=== PATIENT | female | born 1955 | race African-American/Black ===

== ENCOUNTER 2017-08-19 07:31 | Inpatient (IN) | payer OTHER ==
[~2017-08-19] VITALS: Ht 160 cm; Wt 63.5 kg
--- NOTE | ~2017-08-19 | EKG ---
[address] [address] ELECTROCARDIOGRAM REPORT Name: BRY MUNROE Room #: [address] [place] [address] [place] ..#: [id number] Admission: 08/19/17 Attend Phys: Atul Nagy MD Discharge: 08/19/17 Date of : 57 Report #: [id number] THIS REPORT FOR: //name// [facility] ED Test Date: 2017-08-19 Test Time: 10:17:58 Pat Name: BRY MUNROE Department: Room: [facility] Gender: F Mica Inspector: Allen JACKSON : 1955 Requested By: Estefany Law Order Number: [id number] MD: Paul Leal Measurements Intervals [place] Rate: 122 P: 41 AK: 156 QRS: 16 QRSD: 99 T: 2 QT: 318 QTc: 453 Interpretive Statements Sinus tachycardia Probable left atrial enlargement Borderline abnrm T, anterolateral leads Compared to ECG 08/19/2017 08:37:17 No significant changes Electronically Signed On 08-19-2017 19:54:25 CDT by Paul Leal [email or web address] <ELECTRONICALLY SIGNED> By: Paul Leal MD 08/19/17 1954 1017 1017 Paul Leal MD /EPI
--- NOTE | ~2017-08-19 | EKG ---
[place] [address] [address] [place] [address] ELECTROCARDIOGRAM REPORT Name: BRY MUNROE Room #: [facility]#: [id number] Admission: 08/19/17 Attend Phys: Discharge: Date of : 57 Report #: [id number] THIS REPORT FOR: //name// [facility] ED Test Date: 2017-08-19 Test Time: 08:37:17 Pat Name: BRY MUNROE Department: Room: Gender: F [employer] Bagger: [facility] : 1955 Requested By: Estefany Law Order Number: [id number] MD: Paul Leal Measurements Intervals [place] Rate: 141 P: 47 AR: 142 QRS: 35 QRSD: 95 T: -88 QT: 273 QTc: 418 Interpretive Statements Sinus tachycardia Probable left atrial enlargement Borderline repolarization abnormality Compared to ECG 05/15/2007 15:12:23 Sinus rhythm no longer present T-wave abnormality no longer present Electronically Signed On 08-19-2017 8:55:06 CDT by Paul Leal [email or web address] <ELECTRONICALLY SIGNED> By: Paul Leal MD 08/19/1755 Paul Leal MD /WENDY
[2017-08-19 07:32] VITALS: BP 150/73
[2017-08-19] MEDS ORDERED: MOBIC7.5 MG PO (07:37)
[2017-08-19] MEDS ORDERED: FLEXERIL PO (07:38)
[2017-08-19] MEDS ORDERED: MS CONTIN15 MG PO (07:38)
[2017-08-19 08:26] LABS: HEMATOCRIT 34.4 % (37.0-47.0); HEMOGLOBIN 10.9 gm/dL (12.0-15.0); MCH 28.2 pg (26.0-34.0); MCHC 31.7 g/dL (28.0-37.0); MCV 88.8 fL (80.0-100.0); PLATELET COUNT 349 thou/uL (150-400); RBC 3.87 mil/uL (4.20-5.00); RDW 14.5 % (10.5-14.5); WBC 20.2 thou/uL (4.0-11.0)
[2017-08-19 08:39] LABS: BE(vivo) -8.6 mmol/L (-2 to +3); HCO3 18.2 mmol/L (22.0-26.0); PCO2 42.1 mmHg (35.0-45.0); PO2 72.4 mmHg (80.0-100.0); pH 7.253 (7.360-7.450); sO2 92.2 % (92.0-98.0)
[2017-08-19 08:43] LABS: CALCIUM 9.4 mg/dL (8.5-10.1); CREATININE 7.4 mg/dL (0.6-1.0); POTASSIUM 4.9 mmol/L (3.5-5.1)
[2017-08-19 09:16] LABS: ALBUMIN 3.4 g/dL (3.4-5.0); DIRECT BILIRUBIN 0.2 mg/dL (<0.1-0.3); TOTAL BILIRUBIN 0.4 mg/dL (<0.1-1.0); TOTAL PROTEIN 7.9 g/dL (6.4-8.2)
[2017-08-19 09:33] LABS: ABSOLUTE NEUTROPHILS 14.7 thou/uL (1.4-8.2); ATYPICAL LYMPHS 1 %
[2017-08-19 09:34] LABS: ANISOCYTOSIS SLIGHT
[2017-08-19 11:54] VITALS: BP 140/63
== END 2017-08-19 12:06 | disposition home or self-care (01) | DRG 917 ==
LOC: ER 07:31 → EROBS 08:52
PROVIDERS: Emergency Medicine
DX: T40.2X1A Poisoning by other opioids, accidental (unintentional), initial encounter (principal); A41.9 Sepsis, unspecified organism; R65.21 Severe sepsis with septic shock; J69.0 Pneumonitis due to inhalation of food and vomit; N17.9 Acute kidney failure, unspecified; I10 Essential (primary) hypertension; Y92.89 Other specified places as the place of occurrence of the external cause; Z79.899 Other long term (current) drug therapy

== ENCOUNTER 2018-02-17 22:58 | Inpatient (IN) | payer OTHER ==
[~2018-02-17] VITALS: Ht 162.6 cm; Wt 76.5 kg
--- NOTE | ~2018-02-17 | EKG ---
[address] [address] ELECTROCARDIOGRAM REPORT Name: SHANEKABRY D Room #: 245-P [facility] IN .R.#: [id number] Admission: 02/18/18 Attend Phys: Mark Cm MD Discharge: Date of : 57 Report #: [id number] THIS REPORT FOR: //name// [facility] Test Date: 2018-02-18 Test Time: 07:09:58 Pat Name: BRY MUNROE Department: Room: [facility] Gender: F Chief Executive: PHIL : 1955 Requested By: Jose Leigh Order Number: [id number] MD: Jv Fonseca Measurements Intervals [place] Rate: 135 P: 58 SD: 134 QRS: 27 QRSD: 71 T: 20 QT: 327 QTc: 491 Interpretive Statements Sinus tachycardia Borderline repolarization abnormality Borderline prolonged QT interval Compared to ECG 08/19/2017 10:17:58 No significant changes Electronically Signed On 02-18-2018 8:41:35 CDT by Jv Fonseca [email or web address] <ELECTRONICALLY SIGNED> By: Jv Fonseca MD, [facility] 02/18/18 0841 8 8 Jv Fonseca MD, [facility] /EPI
--- NOTE | ~2018-02-17 | EKG ---
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 Activities: SOLO : 1955 Requested By: Mark Cm Order Number: [id number] MD: Jv Fonseca Measurements Intervals [place] Rate: 134 P: 41 ND: 123 QRS: 22 QRSD: 102 T: 58 QT: 386 QTc: 577 Interpretive Statements Sinus tachycardia Nonspecific ST and T wave abnormality Prolonged QT interval Compared to ECG 08/19/2017 10:17:58 No significant change was found Electronically Signed On 02-27-2018 7:59:32 CDT by Jv Fonseca [email or web address] <ELECTRONICALLY SIGNED> By: Jv Fonseca MD, FACC 02/27/18 0759 2312 231 Jv Fonseca MD, FACC /EPI
--- NOTE | ~2018-02-17 | HC ---
[facility] [place] [address] CONSULTATION Name: BRY MUNROE Room #: 204-P [facility] IN ..#: [id number] Admission: 02/18/18 Attend Phys: Mark Cm MD Discharge: 02/26/18 Date of : 57 Report #: [id number] THIS REPORT FOR: //name// CC: Enid Cm DATE OF SERVICE: 02/19/2018 HISTORY OF PRESENT ILLNESS: This is a 63-year-old female patient who was evaluated by me for altered mental status. I had talked to the nurses, looking after this patient last night, and have made multiple attempts to reach the patient's , but I have not been able to reach the patient's . I reviewed the records and admission history and physical examination indicate that when they did try to get history from the , he has indicated "do I have to repeat everything, it is in chart." I was able to reach the Emergency Room physician, who admitted the patient and I reviewed those notes. This patient was also here in this hospital in August of this year and at that time, her creatinine was 7.4. Even now her creatinine, when she came in, it was 3.1. It looks like the patient takes multiple medications. They are mostly psychotropic medication. She was admitted with what looks like pretty significant pneumonia on chest x-ray. She is being treated for that. Infectious Disease is seeing her and addressing the ID issues. When she came in, her white count was 18.2 and it is 13.2 now. REVIEW OF SYSTEMS: She had a prior history of stroke. I do not know how that stroke affected her and what the etiology of that stroke was. She does have a history of taking too much medication and the has indicated to Emergency Room physician that she may have taken too much medication this time also. She was functional and in fact was employed. Last time when she came in, she had a creatinine of 7.4, but she was still able to neurologically function. I carried out the 14-point review of systems, the best I could, but I am not able to reach the patient's . She has a history of hypertension, chronic back pain. She has a sinus tachycardia. PAST MEDICAL HISTORY: Positive for stroke, but I cannot get any further history until I can reach the patient's . FAMILY HISTORY: Unavailable. SOCIAL HISTORY: She is , but I am unable to reach the patient's . PHYSICAL EXAMINATION: Limited. NEUROLOGY: She sits up, she does not follow any commands. She will say a couple of irrelevant things. She moves both sides. She does not cooperate with the cranial nerve examination. That is all the workup or the exam I can carry [facility] [address] [place] [address] CONSULTATION Name: BRY MUNROE Room #: 204-P [facility] IN M.R.#: [id number] Admission: 02/18/18 Attend Phys: Mark Cm MD Discharge: 02/26/18 Date of : 57 Report #: [id number] out in this patient because the patient is very uncooperative. IMPRESSION: This patient's symptoms are concerning. First thing, we need to see how much medication she took. That may be part of her encephalopathy, especially with high creatinine when she came in and she being on medication like gabapentin, which is excreted by kidney. Some encephalopathy is expected with such massive pneumonia. However, this patient was functional before and she is completely confused. Because of that, central nervous system infections should be excluded if we can. [place] thing is to do the spinal tap in that regard, but this patient is so agitated that she probably has to be intubated and have a conscious sedation to get the spinal tap done and maybe an MRI done. She got some Lovenox and they started that with the possibility of pulmonary embolism, but that has been discontinued. She is on heparin for deep venous thrombosis prophylaxis. That also need to be discontinued and I need to discuss risk, benefit with about the spinal tap. Lovenox should be close to out of the system now. She also needs an MRI if it can be done. I will continue to make an effort to reach the . In the meantime, I have ordered an EEG on her and see if she allows that. Thank you very much for this referral and we will continue to follow this patient with you and I will try to continue to make an effort to reach the patient's . <ELECTRONICALLY SIGNED> By: Efrain Crane MD 03/01/18 1910 0758 1011 Efrain Crane MD /nt
--- NOTE | ~2018-02-17 | 2DMMODE ---
[facility] [place] [address] 2 D/M-MODE ECHOCARDIOGRAM Name: BRY MUNROE Room #: 245-P [facility] IN M.R.#: [id number] Admission: 02/18/18 Attend Phys: Mark Cm MD Discharge: Date of : 57 Date of Service: 02/18/18 1343 Report #: [id number] THIS REPORT FOR: //name// APPROVED REPORT Study performed: 02/18/2018 13:10:25 EXAM: Comprehensive 2D, Doppler, and color-flow Echocardiogram Patient Location: ICU Room #: [facility] Status: routine BSA: 1.78 HR: 125 bpm BP: 155/94 mmHg Rhythm: Tachycardia Other Information Study Quality: Adequate Technically limited study due to highly uncooperative and combative patient. Unable to finish exam.. Indications Heart failure. 2D Dimensions RVDd: 38.73 mm IVSd: 9.99 (7-11mm) LVOT Diam: 20.46 (18-24mm) LVDd: 40.45 mm PWd: 10.14 (7-11mm) Ascending Ao: 30.86 (22-36mm) LVDs: 23.75 (25-40mm) Aortic Root: 28.42 mm Volumes Left Atrial Volume (Systole) Single Plane 4CH: 36.55 mL Aortic Valve AoV Peak Paul.: 1.91 m/s AO Peak Gr.: 14.66 mmHg LVOT Max P.12 mmHg LVOT Max V: 1.42 m/s DORITA Vmax: 2.44 cm2 Pulmonary Valve PV Peak Paul.: 1.21 m/s PV Peak Gr.: 5.86 mmHg [facility] [address] [place] [address] 2 D/M-MODE ECHOCARDIOGRAM Name: BRY MUNROE Jorge Room #: [address] [place] [address] [place] [facility]#: [id number] Admission: 02/18/18 Attend Phys: Mark Cm MD Discharge: Date of : 57 Date of Service: 02/18/18 1343 Report #: [id number] Tricuspid Valve TR Peak Paul.: 3.14 m/s TR Peak Gr.: 39.45 mmHg Left Ventricle The left ventricle is normal size. Regional wall motion is grossly normal in visualized shrestha. There is normal left ventricular wall thickness. Left ventricular systolic function is normal. LVEF is 65%. This study is not technically sufficient to allow evaluation of the LV diastolic function. Right Ventricle The right ventricle is normal size. The right ventricular systolic function is normal. Atria The left atrium size is normal. The right atrium size is normal. Aortic Valve The aortic valve is grossly normal in structure. No aortic regurgitation is present. There is no aortic valvular stenosis. Mitral Valve The mitral valve is normal in structure. Trace mitral regurgitation. Tricuspid Valve The tricuspid valve is normal in structure. Mild tricuspid regurgitation. Estimated PAP is 40mmHg plus the right atrial pressure. Pulmonic Valve Pulmonic valve is not well visualized. Great Vessels The aortic root is normal in size. The ascending aorta is normal in size. IVC is not visualized. Pericardium There is no pericardial effusion noted. <Conclusion> The left ventricle is normal size. There is normal left ventricular wall thickness. [facility] [address] [place] [address] 2 D/M-MODE ECHOCARDIOGRAM Name: BRY MUNROE Room #: [address] [place] [address] [place] .R.#: [id number] Admission: 02/18/18 Attend Phys: Mark Cm MD Discharge: Date of : 57 Date of Service: 02/18/181342 Report #: [id number] Left ventricular systolic function is normal. The right ventricle is normal size. The left atrium size is normal. The aortic valve is grossly normal in structure. Trace mitral regurgitation. Mild tricuspid regurgitation. Estimated PAP is 40mmHg plus the right atrial pressure. <ELECTRONICALLY SIGNED> By: Jeffery Mantilla MD 02/18/181342 42 42 Jeffery Mantilla MD /INF
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
--- NOTE | ~2018-02-17 | EKG ---
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
--- NOTE | ~2018-02-17 | EEG ---
[facility] [address] [place] [address] ELECTROENCEPHALOGRAM Name: MUNROEBRY GUTIERREZ Jorge Room #: 204-P [facility] IN M.R.#: [id number] Admission: 02/18/18 Attend Phys: Mark Cm MD Discharge: 02/26/18 Date of : 57 Report #: [id number] THIS REPORT FOR: //name// CC: Enid Cm This patient is being evaluated for altered mental status. EEG is being done to further evaluate that. EEG was done by placing the electrode by standard 10-20 system of electrode placement. Both referential and sequential montages were used for recording. Background activity in this patient's EEG is about 7-8 Hz and 30 microvolts. Photic stimulation is unremarkable. The patient's EEG was intermixed with some theta range slowing on both sides. Throughout the record, no active epileptiform activity was noticed. IMPRESSION: This patient's EEG is intermixed with theta range slowing on both sides. That is a nonspecific abnormality, which can occur with encephalopathy, effect of psychotropic medication, dementia, etc. No active epileptiform activity was noticed during this record. <ELECTRONICALLY SIGNED> By: Efrain Crane MD 03/01/18 1911 1509 1518 Efrain Crane MD /nt
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
[~2018-02-17 22:58] MED LIST: FLEXERIL PO; MOBIC7.5 MG PO; MS CONTIN15 MG PO
[2018-02-17 22:59] VITALS: BP 122/67
[2018-02-17] MEDS ORDERED: NEURONTIN 300300 M1 (23:11)
[2018-02-17 23:32] LABS: URINE BILIRUBIN NEGATIVE (Negative); URINE BLOOD 3+ (Negative); URINE CLARITY CLEAR; URINE COLOR YELLOW; URINE GLUCOSE-RANDOM* NEGATIVE (Negative); URINE KETONES NEGATIVE (Negative); URINE LEUKOCYTES-REFLEX NEGATIVE (Negative); URINE NITRITE-REFLEX NEGATIVE (Negative); URINE PROTEIN (DIPSTICK) 1+ (Negative); URINE SPECIFIC GRAVITY >= 1.030 (1.005-1.035); URINE UROBILINOGEN 0.2 E.U./dl (0.2-1.0)
[2018-02-17 23:40] LABS: ABSOLUTE NEUTROPHILS 15.3 thou/uL (1.4-8.2); BASOPHILS 0.3 % (0.0-2.0); HEMATOCRIT 34.7 % (37.0-47.0); HEMOGLOBIN 11.3 gm/dL (12.0-15.0); LYMPHOCYTES 10.3 % (24.0-44.0); MCH 28.7 pg (26.0-34.0); MCHC 32.5 g/dL (28.0-37.0); MCV 88.5 fL (80.0-100.0); MONOCYTES 5.4 % (1.0-8.0); PLATELET COUNT 312 thou/uL (150-400); RBC 3.92 mil/uL (4.20-5.00); RDW 14.8 % (10.5-14.5); WBC 18.2 thou/uL (4.0-11.0)
[2018-02-17 23:43] LABS: AMORPHOUS URATES Moderate /LPF (None Seen); BACTERIA-REFLEX None Seen /HPF (None Seen); COARSE GRANULAR CASTS 0-3 Few /LPF (None Seen); FINE GRANULAR CASTS 0-3 Few /LPF (None Seen); SQUAMOUS 4-10 Moderate /LPF (0-3); URINE RBC 0-2 Rare /HPF (0-2); URINE WBC-REFLEX 0-5 Rare /HPF (0-5)
[2018-02-17 23:46] LABS: CALCIUM 9.1 mg/dL (8.5-10.1); CREATININE 3.1 mg/dL (0.6-1.0); POTASSIUM 4.6 mmol/L (3.5-5.1)
[2018-02-17 23:48] LABS: BE(vivo) -9.1 mmol/L (-2 to +3); HCO3 17.2 mmol/L (22.0-26.0); PCO2 38.8 mmHg (35.0-45.0); PO2 65.2 mmHg (80.0-100.0); pH 7.265 (7.360-7.450); sO2 90.1 % (92.0-98.0)
[2018-02-18] VITALS (60 sets, daily range): BP systolic 82–196; BP diastolic 46–153
[2018-02-18 00:10] LABS: AMP/METHAMP Negative (Negative); BARBITURATES Negative (Negative); BENZODIAZEPINES Negative (Negative); COCAINE Negative (Negative); METHADONE Negative (Negative); OPIATES POSITIVE (Negative); PCP Negative (Negative)
[2018-02-18 02:09] LABS: ALBUMIN 3.6 g/dL (3.4-5.0); DIRECT BILIRUBIN 0.1 mg/dL (<0.1-0.3); TOTAL BILIRUBIN 0.5 mg/dL (<0.1-1.0); TOTAL PROTEIN 8.1 g/dL (6.4-8.2)
[2018-02-18 03:49] LABS: PCO2 33.9 mmHg (35.0-45.0); PO2 104.9 mmHg (80.0-100.0); sO2 97.1 % (92.0-98.0)
[2018-02-18 03:50] LABS: pH 7.263 (7.360-7.450)
[2018-02-18 04:38] LABS: CALCIUM 8.5 mg/dL (8.5-10.1); POTASSIUM 4.3 mmol/L (3.5-5.1)
[2018-02-18 04:42] LABS: CREATININE 2.1 mg/dL (0.6-1.0)
[2018-02-18 04:45] LABS: APTT 27.9 Seconds (24.5-32.8); FIBRINOGEN 490.4 mg/dL (210-360); INR 1.1; PROTIME 11.1 Seconds (9.3-11.4)
[2018-02-18 05:11] LABS: TSH 0.267 uIU/mL (0.358-3.740)
[2018-02-18 05:44] LABS: FOLIC ACID 30.8 ng/mL (8.6-58.9)
[2018-02-18 14:27] LABS: CALCIUM 9.3 mg/dL (8.5-10.1); CREATININE 1.4 mg/dL (0.6-1.0); POTASSIUM 3.8 mmol/L (3.5-5.1)
[2018-02-19] VITALS (45 sets, daily range): BP systolic 110–182; BP diastolic 54–118
[2018-02-19 05:35] LABS: ABSOLUTE NEUTROPHILS 10.8 thou/uL (1.4-8.2); BASOPHILS 0.2 % (0.0-2.0); EOSINOPHILS 0.7 % (0.0-3.0); HEMATOCRIT 26.6 % (37.0-47.0); MONOCYTES 5.1 % (1.0-8.0); PLATELET COUNT 215 thou/uL (150-400); RBC 3.02 mil/uL (4.20-5.00); RDW 14.8 % (10.5-14.5); WBC 13.2 thou/uL (4.0-11.0)
[2018-02-19 05:36] LABS: HEMOGLOBIN 8.8 gm/dL (12.0-15.0)
[2018-02-19 05:42] LABS: CALCIUM 9.1 mg/dL (8.5-10.1); CREATININE 0.9 mg/dL (0.6-1.0); POTASSIUM 3.3 mmol/L (3.5-5.1)
[2018-02-20] VITALS (39 sets, daily range): BP systolic 119–194; BP diastolic 82–130
[2018-02-20 03:33] LABS: CALCIUM 8.9 mg/dL (8.5-10.1); CREATININE 0.8 mg/dL (0.6-1.0); POTASSIUM 3.6 mmol/L (3.5-5.1)
[2018-02-20 05:23] LABS: ABSOLUTE NEUTROPHILS 12.3 thou/uL (1.4-8.2); BASOPHILS 0.5 % (0.0-2.0); EOSINOPHILS 0.4 % (0.0-3.0); HEMATOCRIT 30.9 % (37.0-47.0); HEMOGLOBIN 9.9 gm/dL (12.0-15.0); LYMPHOCYTES 19.7 % (24.0-44.0); MCH 27.7 pg (26.0-34.0); MCHC 31.9 g/dL (28.0-37.0); MCV 86.7 fL (80.0-100.0); MONOCYTES 7.6 % (1.0-8.0); PLATELET COUNT 264 thou/uL (150-400); POLYS 71.8 % (36.0-66.0); RBC 3.56 mil/uL (4.20-5.00); RDW 14.6 % (10.5-14.5); WBC 17.2 thou/uL (4.0-11.0)
[2018-02-21] VITALS (42 sets, daily range): BP systolic 100–194; BP diastolic 61–127
[2018-02-21 03:32] LABS: CALCIUM 8.6 mg/dL (8.5-10.1); CREATININE 0.7 mg/dL (0.6-1.0)
[2018-02-21 03:35] LABS: POTASSIUM 2.9 mmol/L (3.5-5.1)
[2018-02-21] MEDS ORDERED: MS CONTIN 30 MG30 MG PO (18:39)
[2018-02-22] VITALS (24 sets, daily range): BP systolic 109–159; BP diastolic 61–99
[2018-02-22 04:21] LABS: CALCIUM 8.5 mg/dL (8.5-10.1); CREATININE 0.7 mg/dL (0.6-1.0); POTASSIUM 3.2 mmol/L (3.5-5.1)
[2018-02-23] VITALS (29 sets, daily range): BP systolic 133–186; BP diastolic 70–135
[2018-02-23 04:11] LABS: MAGNESIUM 1.7 mg/dL (1.8-2.4); POTASSIUM 3.4 mmol/L (3.5-5.1)
[2018-02-23 22:15] LABS: MAGNESIUM 1.6 mg/dL (1.8-2.4); POTASSIUM 3.3 mmol/L (3.5-5.1)
[2018-02-24] VITALS (14 sets, daily range): BP systolic 139–185; BP diastolic 75–132
[2018-02-24 05:13] LABS: ABSOLUTE NEUTROPHILS 4.7 thou/uL (1.4-8.2); BASOPHILS 0.5 % (0.0-2.0); EOSINOPHILS 2.7 % (0.0-3.0); HEMOGLOBIN 10.3 gm/dL (12.0-15.0); LYMPHOCYTES 39.6 % (24.0-44.0); MCH 28.8 pg (26.0-34.0); MCHC 33.2 g/dL (28.0-37.0); MCV 86.9 fL (80.0-100.0); MONOCYTES 10.8 % (1.0-8.0); PLATELET COUNT 285 thou/uL (150-400); POLYS 46.4 % (36.0-66.0); RBC 3.57 mil/uL (4.20-5.00); RDW 14.2 % (10.5-14.5); WBC 10.1 thou/uL (4.0-11.0)
[2018-02-24 05:24] LABS: CREATININE 0.7 mg/dL (0.6-1.0); POTASSIUM 3.7 mmol/L (3.5-5.1)
[2018-02-25] VITALS (7 sets, daily range): BP systolic 134–176; BP diastolic 55–118
[2018-02-26] VITALS (7 sets, daily range): BP systolic 135–184; BP diastolic 90–130
[2018-02-26] MEDS ORDERED: MORPHINE SULFAT15 M3 PO (12:58)
[2018-02-26] MEDS ORDERED: COLACE100 MG PO (13:00)
[2018-02-26] MEDS ORDERED: LIDOPATCH1 EACH TRANSDERM (13:00)
[2018-02-26] MEDS ORDERED: MIRALAX17 GM PO (13:00)
[2018-02-26] MEDS ORDERED: FELODIPINE 5 MG5 M1 PO ×2 (13:00→16:15)
[2018-02-26] MEDS ORDERED: NEURONTIN600 MG PO (13:00)
[2018-02-26] MEDS ORDERED: PEPCID20 MG PO (13:00)
== END 2018-02-26 18:45 | disposition home or self-care (01) | DRG 871 ==
LOC: ER 22:58 → EROBS 02-18 01:12 → ICU 02-18 01:12 → 2N 02-24 14:01 → ENTRNSPT 02-26 18:41 → 2N 02-26 18:45
PROVIDERS: Emergency Medicine; Hospitalist; Internal Medicine Pulmonary Disease; Nurse Practitioner Acute Care; Nurse Practitioner Family; Specialist
PROC: 02HV33Z Insertion of Infusion Device into Superior Vena Cava, Percutaneous Approach (ICD-10-PCS; principal; 2018-02-18)
DX: A41.9 Sepsis, unspecified organism (principal); J96.01 Acute respiratory failure with hypoxia; G92 Toxic encephalopathy; J69.0 Pneumonitis due to inhalation of food and vomit; E87.2 Acidosis; E87.3 Alkalosis; N17.9 Acute kidney failure, unspecified; F11.23 Opioid dependence with withdrawal; R65.20 Severe sepsis without septic shock; G89.29 Other chronic pain; M54.9 Dorsalgia, unspecified; N18.9 Chronic kidney disease, unspecified; R41.0 Disorientation, unspecified; R45.1 Restlessness and agitation; I12.9 Hypertensive chronic kidney disease with stage 1 through stage 4 chronic kidney disease, or unspecified chronic kidney disease; Z79.899 Other long term (current) drug therapy; Z86.73 Personal history of transient ischemic attack (TIA), and cerebral infarction without residual deficits
CPT/HCPCS: 10078; 10081; 27000

== ENCOUNTER → 2018-10-03 | Outpatient (CLI) | payer OTHER ==
[~2018-10-03] MED LIST changes: +COLACE100 MG PO; +FELODIPINE 5 MG5 M1 PO; +LIDOPATCH1 EACH TRANSDERM; +MIRALAX17 GM PO; +MORPHINE SULFAT15 M3 PO; +MS CONTIN 30 MG30 MG PO; +NEURONTIN 300300 M1; +NEURONTIN600 MG PO; +PEPCID20 MG PO
== END ==
LOC: NUC 09-16 10:49
DX: M54.6 Pain in thoracic spine (principal)

== ENCOUNTER 2019-01-07 10:50 | Emergency (ER) | payer OTHER ==
[~2019-01-07] VITALS: Ht 160 cm; Wt 74.8 kg
[2019-01-07 11:30] LABS: ABSOLUTE NEUTROPHILS 3.1 thou/uL (1.4-8.2); BASOPHILS 1.6 % (0.0-2.0); EOSINOPHILS 2.2 % (0.0-3.0); HEMATOCRIT 39.1 % (37.0-47.0); LYMPHOCYTES 34.7 % (24.0-44.0); MCH 29.2 pg (26.0-34.0); MCHC 33.2 g/dL (28.0-37.0); MONOCYTES 5.9 % (1.0-8.0); PLATELET COUNT 303 thou/uL (150-400); POLYS 55.6 % (36.0-66.0); RBC 4.45 mil/uL (4.20-5.00); RDW 13.9 % (10.5-14.5); WBC 5.6 thou/uL (4.0-11.0)
[2019-01-07 11:43] LABS: ANION GAP 14 mmol/L (7-16); BUN 16 mg/dL (7-18); CALCIUM 10.3 mg/dL (8.5-10.1); CHLORIDE 105 mmol/L (98-107); CO2 20 mmol/L (21-32); CREATININE 0.9 mg/dL (0.6-1.0); GLUCOSE 95 mg/dL (74-106); POTASSIUM 4.3 mmol/L (3.5-5.1); SODIUM 139 mmol/L (136-145)
[2019-01-07 11:48] LABS: ALBUMIN 4.3 g/dL (3.4-5.0); SGOT 17 U/L (15-37); SGPT 22 U/L (30-65); TOTAL BILIRUBIN 0.4 mg/dL (<0.1-1.0); TOTAL PROTEIN 8.4 g/dL (6.4-8.2); TROPONIN-I <0.06 ng/mL (<0.06)
[2019-01-07 12:40] LABS: URINE BILIRUBIN NEGATIVE (Negative); URINE BLOOD NEGATIVE (Negative); URINE CLARITY CLEAR; URINE COLOR YELLOW; URINE GLUCOSE-RANDOM* NEGATIVE (Negative); URINE KETONES NEGATIVE (Negative); URINE LEUKOCYTES-REFLEX TRACE (Negative); URINE NITRITE-REFLEX NEGATIVE (Negative); URINE PROTEIN (DIPSTICK) NEGATIVE (Negative); URINE UROBILINOGEN 0.2 E.U./dl (0.2-1.0)
[2019-01-07 14:07] VITALS: BP 132/80
--- NOTE | 2019-01-07 16:02 | EKG ---
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
== END 2019-01-07 14:05 | disposition home or self-care (01) ==
LOC: ER 10:50
PROVIDERS: Physician Assistant
DX: M54.5 Low back pain (principal); I10 Essential (primary) hypertension; Z86.73 Personal history of transient ischemic attack (TIA), and cerebral infarction without residual deficits

== ENCOUNTER 2020-07-08 21:02 | Inpatient (IN) | payer OTHER ==
[~2020-07-08] VITALS: Ht 160 cm; Wt 83.6 kg
[2020-07-08 21:04] VITALS: BP 107/76
[2020-07-08 21:31] LABS: HEMATOCRIT 39.5 % (37.0-47.0); HEMOGLOBIN 12.5 gm/dL (12.0-15.0); MCH 28.7 pg (26.0-34.0); MCHC 31.8 g/dL (28.0-37.0); MCV 90.3 fL (80.0-100.0); RBC 4.37 mil/uL (4.20-5.00); RDW 14.4 % (10.5-14.5); WBC 15.5 thou/uL (4.0-11.0)
[2020-07-08 22:10] LABS: CALCIUM 9.6 mg/dL (8.5-10.1); CREATININE 5.4 mg/dL (0.6-1.0); POTASSIUM 4.2 mmol/L (3.5-5.1)
[2020-07-08 22:15] LABS: ALBUMIN 4.8 g/dL (3.4-5.0); TOTAL BILIRUBIN 0.2 mg/dL (0.2-1.0); TOTAL PROTEIN 8.9 g/dL (6.4-8.2)
[2020-07-08 22:24] LABS: URINE BILIRUBIN NEGATIVE (Negative); URINE BLOOD NEGATIVE (Negative); URINE CLARITY CLEAR; URINE COLOR YELLOW; URINE GLUCOSE-RANDOM* NEGATIVE (Negative); URINE KETONES NEGATIVE (Negative); URINE LEUKOCYTES-REFLEX NEGATIVE (Negative); URINE NITRITE-REFLEX NEGATIVE (Negative); URINE PROTEIN (DIPSTICK) TRACE (Negative); URINE UROBILINOGEN 0.2 E.U./dl (0.2-1.0)
[2020-07-08] MEDS ORDERED: TIZANIDINE HCL4 M2 PO (22:28)
[2020-07-08] MEDS ORDERED: MELOXICAM7.5 MG PO (22:28)
[2020-07-09] VITALS (12 sets, daily range): BP systolic 107–199; BP diastolic 66–149
[2020-07-09] MEDS ORDERED: MORPHINE SULFAT15 M3 PO (02:36)
[2020-07-09] MEDS ORDERED: MS CONTIN 30 MG30 M1 PO (02:36)
[2020-07-09 03:28] LABS: HEMATOCRIT 36.2 % (37.0-47.0); HEMOGLOBIN 11.4 gm/dL (12.0-15.0); MCH 28.7 pg (26.0-34.0); MCHC 31.4 g/dL (28.0-37.0); MCV 91.4 fL (80.0-100.0); RBC 3.95 mil/uL (4.20-5.00); RDW 14.6 % (10.5-14.5); WBC 13.8 thou/uL (4.0-11.0)
[2020-07-09 03:33] LABS: CALCIUM 8.2 mg/dL (8.5-10.1); POTASSIUM 4.2 mmol/L (3.5-5.1); TOTAL BILIRUBIN 0.2 mg/dL (0.2-1.0); TOTAL PROTEIN 7.6 g/dL (6.4-8.2)
[2020-07-09 03:59] LABS: CREATININE 4.2 mg/dL (0.6-1.0)
--- NOTE | 2020-07-09 04:55 | NUR ---
Called Carmelita at this time to update her on patient's status after additional narcan bolus. Carmelita gives order for stat ABG
[2020-07-09 05:19] LABS: HCO3 20.5 mmol/L (22.0-26.0); PCO2 54.9 mmHg (35.0-45.0); PO2 87.8 mmHg (80.0-100.0); sO2 94.4 % (92.0-98.0)
[2020-07-09 05:20] LABS: pH 7.189 (7.360-7.450)
--- NOTE | 2020-07-09 05:38 | NUR ---
Bipap settings currently: 18/10-- 14--45%
--- NOTE | 2020-07-09 06:11 | NUR ---
Report attempted to ICU nurse. Reports she will call back.
--- NOTE | 2020-07-09 06:37 | NUR ---
RT at bedside getting blood gas
[2020-07-09 06:40] LABS: BE(vivo) -7.4 mmol/L (-2 to +3); HCO3 20.7 mmol/L (22.0-26.0); PCO2 52.9 mmHg (35.0-45.0); PO2 185.4 mmHg (80.0-100.0)
--- NOTE | 2020-07-09 07:12 | EKG ---
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: : 1955 Requested By: Ester Muniz Order Number: [id number] MD: Malachi Bingham Measurements Intervals [place] Rate: 115 P: 27 [place]: 137 QRS: 8 QRSD: 93 T: 4 QT: 317 QTc: 439 Interpretive Statements Sinus tachycardia Left atrial enlargement Left ventricular hypertrophy Compared to ECG 01/07/2019 11:17:11 Left ventricular hypertrophy now present Sinus rhythm no longer present Electronically Signed On 07-09-2020 7:12:48 AUTOMATION TESTER by Malachi Bingham [email or web address] <ELECTRONICALLY SIGNED> By: Malachi Bingham MD, [facility] 07/09/20711 2116 15 Malachi Bingham MD, FACC /EPI
--- NOTE | 2020-07-09 09:40 | NUR ---
chart review. unable to speak with rachel rt require bipap. 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 she was just her 07/07/20 and dc from ed, then spouse brought her back in today. cm called and spouse with spouse donavan" have 1 step to house. no steps inside. she independent, works about 30hr. no dme equip, manage own medications, hh about 3-4 years ago for her back. drives vehicle up till recently she not been able to"/spouse patrick. education that physical therapy will eval when able, might want to help her with medication and manage them for her. " well she has chronic pain and forgets when pain is bad if taken her medication. thank you"/patrick. will cont following as needed for dc needs.
[2020-07-09 12:12] LABS: AMP/METHAMP Negative (Negative); BARBITURATES Negative (Negative); BENZODIAZEPINES Negative (Negative); COCAINE Negative (Negative); METHADONE Negative (Negative); OPIATES POSITIVE (Negative); PCP Negative (Negative)
[2020-07-09 16:29] LABS: BE(vivo) -9.3 mmol/L (-2 to +3); HCO3 16.2 mmol/L (22.0-26.0); PCO2 33.7 mmHg (35.0-45.0); PO2 91.6 mmHg (80.0-100.0); sO2 96.3 % (92.0-98.0)
[2020-07-09 16:32] LABS: pH 7.299 (7.360-7.450)
--- NOTE | 2020-07-09 17:46 | NUR ---
PT TRANSFERRED FROM ER TO ICU THIS AM 0645. PT VERY DROWSY, LETHARGIC, SOMULENT AT THAT TIME. ON BIPAP WITH SHALLOW BREATHING. AT 0900 PT AWAKE AND CONVERSING WITH RN. ANSWERING QUESTIONS APPROPRIATELY. PT STATES THAT SHE TOOK TOO MANY MEDS TO TRY AND CONTROL HER BACK AND LE PAIN. REPORTS TAKING ABOUT 20PILLS OF AN IBUPROFEN/TYLENOL OR ALEEVE/TYLENOL MIX DUAL ACTION PILL, UNKNOWN DOSAGE. SHE ALSO STATES SHE TOOK AT LEAST ONE EXTRA DOES OF MS CONTIN YESTERDAY AFTERNOON. DR CERDAHA HERE AND INFORMED AND TYLENOL LEVEL ORDERED. STATES SHE WAS HAVING DIFFICULTY WALKING STANDING AND WALKING. PAIN IN LE HAS INCREASED IN LAST WEEK. BIPAP OFF SINCE 1100 AND PT TOLERATING WELL. 1200 SPOKE WITH PT'S AND UPDATED HIM. 1645 REPEAT ABG'S DRAWN AND CALLED TO DR CHEN. STATUS UPDATE GIVEN. TO USE BIPAP ONLY PRN APNEA/DECREASED O2 SATS.
[2020-07-10] VITALS (16 sets, daily range): BP systolic 147–198; BP diastolic 79–114
[2020-07-10 03:56] LABS: ALBUMIN 3.2 g/dL (3.4-5.0); ANION GAP 7 mmol/L (7-16); BUN 22 mg/dL (7-18); CALCIUM 8.6 mg/dL (8.5-10.1); CHLORIDE 108 mmol/L (98-107); CO2 25 mmol/L (21-32); CREATININE 1.1 mg/dL (0.6-1.0); DIRECT BILIRUBIN < 0.1 mg/dL (<0.1-0.2); GLUCOSE 119 mg/dL (74-106); PHOSPHORUS 2.7 mg/dL (2.5-4.9); SGOT 218 U/L (15-37); SGPT 129 U/L (30-65); SODIUM 140 mmol/L (136-145); TOTAL BILIRUBIN 0.2 mg/dL (0.2-1.0); TOTAL PROTEIN 6.5 g/dL (6.4-8.2)
[2020-07-11] VITALS (7 sets, daily range): BP systolic 146–167; BP diastolic 88–119
--- NOTE | 2020-07-11 02:24 | NUR ---
ALERT AND ORIENTED X4. SLEEPING IN CHAIR DUE TO CHRONIC BACK PAIN, KPAD TO BACK NEEDED PER PATIENT. STATES CANT SLEEP IN BED. WORKING ON GOALS AND PLAN OF CARE FOR NOC. PROGRESSING TOWARDS DISCHARGE GOALS SLOWLY. CONTINUE TO ASSES CLOSELY.
--- NOTE | 2020-07-11 09:27 | NUR ---
ASSUMED CARE OF PT AT 0700, PT UP IN CHAIR
[2020-07-11 10:44] LABS: HEMOGLOBIN 11.4 gm/dL (12.0-15.0); MCH 28.8 pg (26.0-34.0); MCHC 32.5 g/dL (28.0-37.0); MCV 88.8 fL (80.0-100.0); RBC 3.94 mil/uL (4.20-5.00); RDW 14.2 % (10.5-14.5); WBC 5.7 thou/uL (4.0-11.0)
[2020-07-11 10:52] LABS: CALCIUM 9.1 mg/dL (8.5-10.1); CREATININE 0.8 mg/dL (0.6-1.0); MAGNESIUM 1.8 mg/dL (1.8-2.4); POTASSIUM 3.5 mmol/L (3.5-5.1)
[2020-07-12] VITALS (9 sets, daily range): BP systolic 146–178; BP diastolic 78–110
--- NOTE | 2020-07-12 03:07 | NUR ---
SLEPT MOST OF SHIFT. PAIN MEDICATION GIVEN NEEDED. USING HEATING PAD NEEDED. UP WITH STANDBY ASSIST NEEDED. WORKING ON GOALS AND PLAN OF CARE FOR NOC. PROGRESSING TOWARDS DISCHARGE GOALS SLOWLY. DENIES COMPLAINTS OF CHEST PAIN OR SHORTNESS OF AIR. CONTINUE TO ASSES CLOSELY.
[2020-07-12] MEDS ORDERED: MIRALAX17 GM PO (12:13)
[2020-07-12] MEDS ORDERED: LOPRESSOR100 M1 PO (12:13)
[2020-07-12] MEDS ORDERED: ACETAMINOPHEN325 M1 PO (12:13)
[2020-07-12] MEDS ORDERED: LIDOPATCH1 EACH TRANSDERM (12:13)
[2020-07-12] MEDS ORDERED: COLACE 100 MG100 MG PO (12:13)
--- NOTE | 2020-07-12 12:46 | NUR ---
RECEIVED PT'S CARE AROUND 0735; PT. ON CHAIR; RESTING WITH EYES CLOSED; EQUAL CHEST RISING NOTICED; SR ON THE MONITOR; DURING AM ASSESSMENT PT. AOX4; C/O PAIN OVER BACK; 02/13; PRN PAIN MEDICATION NOT DUE; REFUSED LIDOCAINE PATCH; AM MEDICATIONS GIVEN; REQUESTED TO TURN OFF CHAIR ALARM DUE TO MOVEMENT WITHIN THE CHAIR; EDUCATED ABOUT CALLING BEFORE GETTING UP FROM BED; ST. UNDERSTANDING; EDUCATED ABOUT D/C PROCESS; ST. UNDERSTANDING; SBP ON THE 170s AT NOON; PHYSICIAN ROUNDING NOTIFIED; NO NEW ORDERS; PRN MEDICATION GIVEN; MONITORING; PT. REQUESTED TRANSPORTATION; TITLE I COORDINATOR NOTIFIED; ASSESSMENT CHARGED; FOLLOWING POC; WILL WORK ON THE D/C PAPERS;
--- NOTE | 2020-07-12 13:37 | NUR ---
Patient to ca home with HH care. OT worked with patient. patient does not want skilled care she wants to return home. She is agreeable to home health. She has no prferference of HH agency. She reports any home health that is in network with insurance. Verified home address, PCP Dr Rylan Flores. Patient needs cab ride home. She reports her purse and phone in her home as she came emergently. Patient reports she has a walker she can use for home. ca shoe lay out planner to arrange HH care.
--- NOTE | 2020-07-12 16:27 | NUR ---
FAXED REFERRAL TO [facility] HH SPOKE WITH ANURAG IN INTAKE THEY CAN ACCEPT. FAXED DC ORDERS/SUMMARY RECEIVED CONFIRMATION AND ANURAG WILL ARRANGE VISITS WITH PT.
== END 2020-07-12 16:04 | disposition home health service (06) | DRG 917 ==
LOC: ER 21:02 → ICU 07-09 01:02 → 2N 07-09 01:02 → EROBS 07-09 01:02 → ICU 07-09 06:45 → 2N 07-10 16:53
PROVIDERS: Hospitalist; Internal Medicine Pulmonary Disease; Nurse Practitioner Family; ADMIT Internal Medicine; ATTEND Internal Medicine
PROC: 5A09357 Assistance with Respiratory Ventilation, Less than 24 Consecutive Hours, Continuous Positive Airway Pressure (ICD-10-PCS; principal; 2020-07-09)
DX: T40.2X1A Poisoning by other opioids, accidental (unintentional), initial encounter (principal); J96.01 Acute respiratory failure with hypoxia; G92 Toxic encephalopathy; N17.0 Acute kidney failure with tubular necrosis; J69.0 Pneumonitis due to inhalation of food and vomit; J96.02 Acute respiratory failure with hypercapnia; R65.10 Systemic inflammatory response syndrome (SIRS) of non-infectious origin without acute organ dysfunction; I69.351 Hemiplegia and hemiparesis following cerebral infarction affecting right dominant side; M62.82 Rhabdomyolysis; E87.4 Mixed disorder of acid-base balance; I10 Essential (primary) hypertension; G89.4 Chronic pain syndrome; K59.00 Constipation, unspecified; T39.395A Adverse effect of other nonsteroidal anti-inflammatory drugs [NSAID], initial encounter; Z20.822 Contact with and (suspected) exposure to COVID-19; Y92.89 Other specified places as the place of occurrence of the external cause; Z79.899 Other long term (current) drug therapy; Z79.891 Long term (current) use of opiate analgesic
CPT/HCPCS: 10081; 10203

== ENCOUNTER 2020-12-17 07:39 | Inpatient (IN) | payer OTHER ==
[~2020-12-17] VITALS: Ht 160 cm; Wt 71.0 kg
--- NOTE | ~2020-12-17 | EMS ---
[address] [address] EMS Patient Care Report Name: BRY MUNROE Room #: 361-P ADM IN ..#: [id number] Admission: 12/17/20 Attend Phys: Alphonse Joshi MD Discharge: Date of : 57 Report #: [id number] THIS REPORT FOR: //name// Report Transmitted: 12/18/2020 13:34 EMS Care Summary [place], [place]/[facility] Incident [id number] @ 12/17/2020 07:16 Incident Location [address] [place] [address] Patient BRY LAFLEUR Female, 65 Years 1955 Patient Address [address] [place] [address] Patient History Hypertension (HTN),Back Pain (Chronic), Patient Allergies No known allergies, Patient Medications Gabapentin, Morphine, Chief Complaint Shortness of breath Disposition Transported No Lights/[place] Dispatch Reason Chest Pain (Non-Traumatic) Transported To [facility] Narrative Arrived on scene to find our patient seated on a couch in the living room of her home. Patient stated she had tested positive for Covid-19 4 days prior. Patient stated she had started to become short of breath the night before and it had gone progressively worse until she had called EMS. [place] [address] EMS Patient Care Report Name: BRY MUNROE Room #: [address] [place] [address]#: [id number] Admission: 12/17/20 Attend Phys: Alphonse Joshi MD Discharge: Date of : 57 Report #: [id number] in 7-10 word sentences and had some increased work of breathing. Patient denied having any history of COPD, asthma, or respiratory problems. Patient stated she had central, nonradiating chest pain that she described as an "ache." Patient increased on palpation and inspiration. Patient's lung sounds equal and clear bilaterally. Patient's SPO2 was in the low 80% range on room air. O2 given via nasal cannula raising the patient SPO2 to 91%. Patient was transported and transferred to receiving facility without change in patient condition. Initial Vitals @07:22P: 112,SpO2: 81, @07:27P: 105,BP: 168/139,CO: 7,SpO2: 89, @07:25P: 109,BP: 169/118,CO: 8,SpO2: 90, @07:28P: 104,R: 20,BP: 166/85,Pain: 4/10,GCS: 15,CO: 8,SpO2: 91,Revised Trauma: 12, @07:22P: 111,R: 20,BP: 163/97,Pain: 4/10,GCS: 15,SpO2: 85,Revised Trauma: 12, Assessments @07:19MENTAL:Person Oriented,Place Oriented,Event Oriented,Time Oriented,SKIN:HEENT:Head/Face: No Abnormalities,Neck/Airway: No Abnormalities,LUNG SOUNDS:General: No Abnormalities,Left Upper: No Abnormalities,Right Upper: No Abnormalities,Left Lower: No Abnormalities,Right Lower: No Abnormalities,ABDOMEN:General: No Abnormalities,Left Upper: No Abnormalities,Right Upper: No Abnormalities,Left Lower: No Abnormalities,Right Lower: No Abnormalities,PELVIS//GI:No Abnormalities,EXTREMITIES:Left Arm: No Abnormalities,Right Arm: No Abnormalities,Left Leg: No Abnormalities,Right Leg: No Abnormalities,PULSE:NEURO:No Abnormalities, Impression COVID-19 - Confirmed by testing Procedures @07:19ALS AssessmentResponse: UnchangedSucceeded@07:23Oxygen FlowRate: 4 Device: Nasal Cannula (NC) Response: ImprovedSucceeded Timeline 07:12,Call Received 07:12,Dispatch Notified 07:16,Dispatched 07:16,En Route 07:18,On Scene 07:19,At Patient 07:19,ALS Assessment,Response: UnchangedSucceeded, 07:22,BP: / M,PULSE: 112,RR: R,SPO2: 81 Ox,ETCO2: ,BG: ,PAIN: ,GCS: , 07:22,BP: 163/97 M,PULSE: 111,RR: 20 R,SPO2: 85 Ox,ETCO2: ,BG: ,PAIN: 4,GCS: 15, [address] [address] EMS Patient Care Report Name: BRY MUNROE Jorge Room #: 361-P [facility] IN .R.#: [id number] Admission: 12/17/20 Attend Phys: Alphonse Joshi MD Discharge: Date of : 57 Report #: [id number] 07:23,Oxygen FlowRate: 4 Device: Nasal Cannula (NC) Response: ImprovedSucceeded, 07:24,Depart Scene 07:25,BP: 169/118 M,PULSE: 109,RR: R,SPO2: 90 Ox,ETCO2: ,BG: ,PAIN: ,GCS: , 07:27,BP: 168/139 M,PULSE: 105,RR: R,SPO2: 89 Ox,ETCO2: ,BG: ,PAIN: ,GCS: , 07:28,BP: 166/85 M,PULSE: 104,RR: 20 R,SPO2: 91 Ox,ETCO2: ,BG: ,PAIN: 4,GCS: 15, 07:35,At Destination 07:44,Call Closed Disclaimer v1.1 Copyright 2020 [employer] This EMS Care Summary contains data elements from the applicable legal record (which may be displayed differently). It is designed to provide pertinent information for the following purposes: continuity of care, clinical quality, and state data reporting. The complete legal record is available to ED staff and administrators of the receiving hospital in [employer] Patient Tracker. All data is provided "as is."
[2020-12-17 07:39] VITALS: BP 161/107
[~2020-12-17 07:39] MED LIST changes: +ACETAMINOPHEN325 M1 PO; +COLACE 100 MG100 MG PO; +LOPRESSOR100 M1 PO; +MELOXICAM7.5 MG PO; +MS CONTIN 30 MG30 M1 PO; +TIZANIDINE HCL4 M2 PO
[2020-12-17 07:59] LABS: ABSOLUTE NEUTROPHILS 4.4 thou/uL (1.4-8.2); BASOPHILS 0.4 % (0.0-2.0); EOSINOPHILS 0.2 % (0.0-3.0); HEMATOCRIT 39.9 % (37.0-47.0); HEMOGLOBIN 13.5 gm/dL (12.0-15.0); LYMPHOCYTES 17.2 % (24.0-44.0); MCH 29.7 pg (26.0-34.0); MCHC 33.8 g/dL (28.0-37.0); MONOCYTES 6.8 % (1.0-8.0); PLATELET COUNT 284 thou/uL (150-400); POLYS 75.4 % (36.0-66.0); RBC 4.53 mil/uL (4.20-5.00); RDW 13.2 % (10.5-14.5); WBC 5.8 thou/uL (4.0-11.0)
[2020-12-17 08:08] LABS: ANION GAP 13 mmol/L (7-16); BUN 23 mg/dL (7-18); CALCIUM 9.3 mg/dL (8.5-10.1); CHLORIDE 99 mmol/L (98-107); CO2 25 mmol/L (21-32); CREATININE 1.2 mg/dL (0.6-1.0); GLUCOSE 146 mg/dL (74-106); POTASSIUM 3.1 mmol/L (3.5-5.1); SODIUM 137 mmol/L (136-145)
[2020-12-17 08:18] LABS: ALBUMIN 3.7 g/dL (3.4-5.0); SGOT 106 U/L (15-37); SGPT 101 U/L (14-59); TOTAL BILIRUBIN 0.7 mg/dL (0.2-1.0); TOTAL PROTEIN 8.2 g/dL (6.4-8.2); TROPONIN-I <0.06 ng/mL (<0.06)
[2020-12-17 09:23] LABS: BE(vivo) 1.6 mmol/L (-2 to +3); HCO3 24.5 mmol/L (22.0-26.0); PCO2 33.1 mmHg (35.0-45.0); PO2 74.8 mmHg (80.0-100.0); pH 7.487 (7.360-7.450); sO2 96.1 % (92.0-98.0)
--- NOTE | 2020-12-17 13:54 | EKG ---
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
[2020-12-17 16:32] LABS: CHOLESTEROL 195 mg/dL (<200); HDL CHOLESTEROL 39 mg/dL (>40); LDL CHOLESTEROL 126 mg/dL (<100); TRIGLYCERIDE 151 mg/dL (<150); VLDL 30 mg/dL (<40)
[2020-12-17 17:32] LABS: FOLIC ACID 17.6 ng/mL (8.6-58.9)
--- NOTE | 2020-12-17 18:00 | NUR ---
PT WAS EATING DINNER AND PT REMOVED HIGH FLOW NASAL CANNULA AGAINST NURSES EDUCATION. PATIENT DESATED TO 75% ON ROOM AIR. PT WAS PLACED BACK ON HIGH FLOW AND RE-EDUCATED ON THE IMPORTANCE OF WEARING OXYGEN, PT SATURATIONS INCREASED TO 91% ON NC
[2020-12-18] VITALS (9 sets, daily range): BP systolic 139–193; BP diastolic 75–121
[2020-12-18 06:05] LABS: ABSOLUTE NEUTROPHILS 4.4 thou/uL (1.4-8.2); BASOPHILS 0.5 % (0.0-2.0); HEMATOCRIT 42.1 % (37.0-47.0); HEMOGLOBIN 13.8 gm/dL (12.0-15.0); LYMPHOCYTES 19.3 % (24.0-44.0); MCH 29.9 pg (26.0-34.0); MCHC 32.7 g/dL (28.0-37.0); MCV 91.5 fL (80.0-100.0); MONOCYTES 5.7 % (1.0-8.0); PLATELET COUNT 215 thou/uL (150-400); POLYS 74.5 % (36.0-66.0); RDW 13.3 % (10.5-14.5); WBC 5.9 thou/uL (4.0-11.0)
[2020-12-18 06:20] LABS: ALBUMIN 3.3 g/dL (3.4-5.0); ANION GAP 19 mmol/L (7-16); BUN 29 mg/dL (7-18); CALCIUM 8.7 mg/dL (8.5-10.1); CHLORIDE 100 mmol/L (98-107); CO2 21 mmol/L (21-32); DIRECT BILIRUBIN 0.2 mg/dL (<0.1-0.2); GLUCOSE 118 mg/dL (74-106); PHOSPHORUS 3.5 mg/dL (2.6-4.7); POTASSIUM 3.9 mmol/L (3.5-5.1); SGOT 85 U/L (15-37); SGPT 101 U/L (14-59); SODIUM 140 mmol/L (136-145); TOTAL BILIRUBIN 0.4 mg/dL (0.2-1.0); TOTAL PROTEIN 7.4 g/dL (6.4-8.2)
--- NOTE | 2020-12-18 07:51 | NUR ---
ADMIT ARRIVED AT 0130 FROM ER. ADMISSION COMPLETED. CAREPLAN AND INTERVENTIONS PUT INTO PLACE. 02 SATURATION STAYED IN MID 90'S WHILE ON OPTIFLOW WITH 55L AND 91%. IV ACCESS ESTABLISHED IN ER VERY FICKLE DUE TO CANNULA NOT BEING ADVANCED. ATTEMPTED TO ESTABLISH NEW SITE WITHOUT SUCCESS. IV TEAM CONSULTED. PT VERY WEAK. PT HAS BEEN VOIDING VIA BEDPAN.
--- NOTE | 2020-12-18 11:18 | NUR ---
VAT CONSULTED FOR MIDLINE PLACEMENT. RIGHT UPPER BASILIC ML PLACED, TRIMMED 14CM/0CM EXTERNAL. FLUSHED AND RETURNED BLOOD BRISKLY. RELEASED LINE FOR USE, PER HOSPITAL VASCULAR ACCESS POLICY.
--- NOTE | 2020-12-18 18:00 | HC ---
[facility] [place] [address] CONSULTATION Name: BRY MUNROE Room #: 361-P ADM IN ..#: [id number] Admission: 12/17/20 Attend Phys: Alphonse Joshi MD Discharge: Date of : 57 Report #: [id number] THIS REPORT FOR: cc: Padma Mcdonald MD, Karla L. MD Barry, Joseph W. MD ~ DATE OF SERVICE: 12/18/2020 INFECTIOUS DISEASE CONSULTATION ATTENDING PHYSICIAN: Dr. Joshi. REASON FOR EVALUATION: COVID-19 infection, complicated by pneumonitis and respiratory failure with early ARDS. HISTORY OF PRESENT ILLNESS: Chart reviewed, the patient examined. This is a 65-year-old woman with known history of vasculopathy, previous stroke with right-sided weakness, who presented to the Emergency Room with complaints of progressive dyspnea, had been previously diagnosed with COVID-19 infection; however, it worsened, she had a persistent cough with chest pain consistent with pleurisy, was found to have saturations in the 80s. Evaluation was undertaken. Lactic acid of 1.5. AST was elevated at 106, ALT of 101. Chest x-ray showed bilateral patchy infiltrates. ABGs: pH 7.487, pCO2 of 33.1, pO2 of 74.8 on a nonrebreather. Procalcitonin 0.06. Blood cultures collected at time of admission are sterile thus far. She was empirically started on therapy with azithromycin, ceftriaxone, remdesivir, corticosteroids. ALLERGIES: None known. MEDICATIONS: Ceftriaxone, cholecalciferol, zinc sulfate, thiamine, pantoprazole, metoprolol, gabapentin, methylprednisolone, ascorbic acid, enoxaparin, albuterol, azithromycin. PAST MEDICAL HISTORY: As described above, hypertension, previous stroke, chronic back pain. SOCIAL HISTORY: Nonsmoker, no ethanol, no illicit drug use. FAMILY HISTORY: Noncontributory. REVIEW OF SYSTEMS: As noted above, some mild GI related complaints, anorexia with poor p.o. intake. PHYSICAL EXAMINATION: GENERAL: She appears chronically ill. She is in a position, right lateral decubitus. She appears ill and borderline toxic. [facility] [address] [facility] [place] [address] CONSULTATION Name: BRY MUNROE Room #: 361-P [facility] IN [facility]#: [id number] Admission: 12/17/20 Attend Phys: Alphonse Joshi MD Discharge: Date of : 57 Report #: [id number] VITAL SIGNS: Temperature earlier 100.7, more recently 97.6, pulse 72, respirations 20, blood pressure 190/110. SKIN: Warm. HEENT: Normocephalic. Extraocular muscles intact. Optiflow in place, 55 liters per minute, FiO2 of 90%. NECK: Supple. LUNGS: Somewhat diminished overall, few scattered coarse breath sounds. HEART: Appears to be regular. ABDOMEN: Mildly distended, somewhat firm. No apparent peritoneal signs. GENITOURINARY AND RECTAL: Deferred. LABORATORY DATA: Blood cultures sterile thus far. Most recent electrolytes, sodium 140, potassium 3.9, chloride 100, bicarbonate 21, anion gap of 19, BUN and creatinine 29 and 1.0, glucose of 118, AST of 85, ALT of 101, albumin 33, total protein 7.4. Estimated GFR of 68. CBC: White count of 5.9, H and H 13.8 and 42.1, platelets of 215. TSH of 0.529. Sed rate of 57. CRP of 168.2. ABGs: pH 7.487, pCO2 of 33.1, pO2 of 74.8 and on a nonrebreather. ASSESSMENT AND PLAN: COVID-19 infection, complicated by pneumonitis, respiratory failure, acute respiratory distress syndrome. We will continue empiric therapy and adjust antimicrobial treatment as well as directed therapy toward the coronavirus. In addition to the corticosteroids, remdesivir, we will add Actemra. She remains quite ill and bordering on toxic. May need a higher level of oxygen support. In fact, may deteriorate before she improves. She is certainly at risk for complications. Continue to monitor expectantly. <ELECTRONICALLY SIGNED> By: Mathieu Frances MD 12/18/20 1800 0826 1142 Mathieu Frances MD /nt
--- NOTE | 2020-12-18 19:35 | NUR ---
RN ASSUMED PT'S CARE AT 0700-1900PM, PT IS A&OX4, PT'S SOB HAS IMPROVED, PT'S OPTIFLOW HAS REDUCED TO O2 70%, 45L/MIN/NC,PT IS CONTINUING IV ABX AND TREAT COVID MEDICATIONS.
--- NOTE | 2020-12-18 23:54 | NUR ---
PT SLEEPING IN BED, EASILY AROUSED. OPTI ROMINA AND CONTINUOUS PULSE OX. PT ENCOURAGED TO REST AND LIMIT PHONE CONVERSATIONS. BED ALARM ON. IVF INTACT.
[2020-12-19] VITALS (7 sets, daily range): BP systolic 159–189; BP diastolic 80–103
[2020-12-19 03:40] LABS: ALBUMIN 2.7 g/dL (3.4-5.0); CALCIUM 7.9 mg/dL (8.5-10.1); CREATININE 1.1 mg/dL (0.6-1.0); DIRECT BILIRUBIN 0.1 mg/dL (<0.1-0.2); PHOSPHORUS 3.8 mg/dL (2.5-4.9); POTASSIUM 3.2 mmol/L (3.5-5.1); TOTAL BILIRUBIN 0.3 mg/dL (0.2-1.0); TOTAL PROTEIN 6.8 g/dL (6.4-8.2)
--- NOTE | 2020-12-19 19:02 | NUR ---
RN ASSUMED PT'S CARE AT 0700-1900PM, PT IS A&OX4, PT IS ON OPTIFLOW O2 80-90%, O2 50-55L/MIN/NC, PT'S O2SAT STAYS AT 91-95%, BUT PT HAS SOB WITH ACTIVITIES, PT HAS PRN MEDICATION FOR HTN, PT IS CONTINUING IV ABX AND TREAT COVID MEDICATIONS, AND PAIN MANAGEMENT , RN HAS REPORTED TO NEXT SHIFT TO KEEP EYE ON PT.
[2020-12-20] VITALS (7 sets, daily range): BP systolic 160–191; BP diastolic 89–115
[2020-12-20 03:44] LABS: ALBUMIN 2.7 g/dL (3.4-5.0); ANION GAP 10 mmol/L (7-16); BUN 20 mg/dL (7-18); CALCIUM 8.2 mg/dL (8.5-10.1); CHLORIDE 105 mmol/L (98-107); CO2 27 mmol/L (21-32); DIRECT BILIRUBIN < 0.1 mg/dL (<0.1-0.2); GLUCOSE 117 mg/dL (74-106); PHOSPHORUS 3.2 mg/dL (2.6-4.7); SGOT 39 U/L (15-37); SGPT 54 U/L (14-59); SODIUM 142 mmol/L (136-145); TOTAL BILIRUBIN 0.4 mg/dL (0.2-1.0); TOTAL PROTEIN 6.8 g/dL (6.4-8.2)
[2020-12-20 03:45] LABS: POTASSIUM 3.6 mmol/L (3.5-5.1)
--- NOTE | 2020-12-20 05:56 | NUR ---
PT MAKING SLOW PROGRESS TOWARDS GOALS. ON OPTIFLO 55L-90% OVERNIGHT. PT SUPPLEMENTS WITH NRB MASK AT TIMES OF JOANNE. ABLE TO MOVE TO BSC AND BACK WITH STANDBY ASSIST. LUNGS COARSE IN BOTH LOWER LOBES.
[2020-12-21 03:35] VITALS: BP 171/101
[2020-12-21 05:36] LABS: ALBUMIN 2.5 g/dL (3.4-5.0); CALCIUM 7.8 mg/dL (8.5-10.1); CREATININE 0.8 mg/dL (0.6-1.0); DIRECT BILIRUBIN 0.1 mg/dL (<0.1-0.2); PHOSPHORUS 2.7 mg/dL (2.5-4.9); TOTAL BILIRUBIN 0.4 mg/dL (0.2-1.0); TOTAL PROTEIN 6.4 g/dL (6.4-8.2)
[2020-12-21 05:39] LABS: POTASSIUM 2.7 mmol/L (3.5-5.1)
[2020-12-21 07:36] VITALS: BP 180/107
[2020-12-21 11:36] VITALS: BP 172/93
[2020-12-21 15:08] LABS: HIV ANTIBODY Non Reactive (Non Reactive)
--- NOTE | 2020-12-21 15:14 | NUR ---
INITIAL ASSESSMENT: Received consult. DARRIN reviewed chart and spoke with nursing and attending physician. Pt was admitted due to COVID pneumonia. Pt placed in Enhanced Isolation. Pt has not received a COVID vaccine. Pt is afebrile and requiring optiflow. Pt is on IV abx and IV steroids. Pt is on Remdesivir. DARRIN spoke with pt's spouse, King, via phone. Introduced role of SW. Pt is normally alert/orientated x 4. Pt and spouse live in their home. Pt has a walker to use if needed. Pt has used [facility] in the past. Pt's PCP is Dr. Padma Mcdonald. Pt's spouse was recently hospitalized at [facility] for 10 days due to COVID. He is now at home with home O2. Per King, pt's family have all been hit very hard with COVID. Pt's sister is currently hospitalized at [facility] with COVID. Pt's spouse states their goal is for pt to return home when medically stable. Will need therapy evals ordered when pt is able to participate. DARRIN is following to assist as needed with discharge planning.
[2020-12-21 15:31] VITALS: BP 154/89
[2020-12-21 20:34] VITALS: BP 168/79
[2020-12-22 04:45] VITALS: BP 179/107
[2020-12-22 07:17] VITALS: BP 208/113
[2020-12-22 11:05] VITALS: BP 186/92
--- NOTE | 2020-12-22 14:29 | NUR ---
DARRIN reviewed chart and spoke with nursing and attending physician. Pt remains in Enhanced Isolation due to COVID. Pt is afebrile and requiring optiflow. Pt is on IV abx and IV steroids. Pt's BP elevated. DARRIN notified by ARGENIS RN that pt's [facility] Dual Complete is inactive. Pt has Medicare Part A only. Medicare coverage will need to be verified. Therapy evals to be ordered when pt is able to participate. DARRIN is following to assist as needed with discharge planning.
[2020-12-22 15:42] VITALS: BP 140/117
--- NOTE | 2020-12-22 17:42 | NUR ---
assumed care of pt at 0700. pt hysterical this morning upon hearing of sister's passing today. requiring ativan to calm down. removing optiflow impulsively throughout day, desaturating to 60%'s spo2. hypertensive throughout day, physician notifed and meds adjusted. up to bsc w/ 1 assist[address] all precautions in place. ivf infusing per order. slow progress toward poc goals.
[2020-12-22 19:40] VITALS: BP 207/120
[2020-12-22 21:32] VITALS: BP 160/89
--- NOTE | 2020-12-22 22:52 | NUR ---
Patient does not appear to recognize severity of condition, she takes masks off to talk on the phone on multiple occasions, desats in mid 80's. Strong words given patient that if she wants to survive to leave mask on. Maribell Pak called and updated who agreed patient's phone needs to be unplugged.
--- NOTE | 2020-12-22 23:00 | NUR ---
Patient unable to keep sats up on optiflow, placed on BIPAP at 100% per RT, sats 92%.
[2020-12-23] VITALS (47 sets, daily range): BP systolic 111–209; BP diastolic 72–136
--- NOTE | 2020-12-23 01:15 | NUR ---
Patient got out of bed without calling for assistance to void, found on the floor with urine all over. Patient assisted back up and ambulated to bed without difficulty. No visible injury. A Leticia NOVELTIES SALES REPRESENTATIVE, nursing supervisor roller printing and Maribell Pak notified. EVD done. Care plan updated.
--- NOTE | 2020-12-23 05:43 | NUR ---
Patient not making progress towards outcome goals. Continues to require BIPAP to maintain optimal saturation. Blood pressure still elevated but improved after Hydralazine. Bradycardia down to 40's, not new to patient. Large urine output. IVfluids infusing. Fall precautions in place.
--- NOTE | 2020-12-23 11:04 | NUR ---
DARRIN reviewed chart and spoke with nursing and attending physician. Pt remains in Enhanced Isolation due to COVID. Pt is afebrile and requiring 100% bipap support. Pt transferred to ICU earlier today. Pt did have a fall during overnight cashier. DARRIN updated [employer] CM. Following to assist as needed with discharge planning.
--- NOTE | 2020-12-23 11:37 | NUR ---
Seen for early LOS, day 6. Pt admitted with covid. PMH: HTN, CKD, CVA w/R sided weakness, recurrent toxic metabolic encephalopathy. Remains on covid treatment protocol. K+ low on admit, repleting. Intakes fair since admit, but but improved yesterday with 90% intake at all meals. No c/o chewing/swallowing difficulities noted on regular diet. Low nutrition risk.
--- NOTE | 2020-12-23 13:13 | NUR ---
Pt TRANSFERRED TO ICU D/T NEED FOR HIGHER LEVEL OF CARE. WILL NEED NEW PT ORDERS IF/WHEN Pt IS APPROPRIATE FOR PT INTERVENTIONS.
--- NOTE | 2020-12-23 16:42 | NUR ---
Attempted to update , no answer. Called niece Mellisa and notified of urgent need for intubation.
--- NOTE | 2020-12-23 17:35 | NUR ---
Patient was intubated at 1701 [address] CHEN. 6 ml of Propofol and 10 ml of Succ were given for intubation. Patient did albina down to 20s-30s after shortly after intubation,briefly. this did resolve without intervention. Dr. Chen aware. Propofol gtt. started, see eMAR. Family updated on patient condition prior to and following intubation. Central line placed per IV team. Family is aware of central line placement, patient plan of care and current patient status.
--- NOTE | 2020-12-23 18:02 | NUR ---
POST INTUBATION A #6F TRIPLE LUMEN CENTRAL LINE WAS PLACED AFTER A BEDSIDE TIMEOUT PER HOSPITAL POLICY. THE JUGULAR VEIN WAS WIDLEY PATENT. THE 25CM LINE WAS ADVANCED TO 6CM EXTERNAL. A STAT CHEST XRAY WAS ORDERED FOR CONFIRMATION
[2020-12-23 19:13] LABS: BE(vivo) 1.2 mmol/L (-2 to +3); HCO3 25.4 mmol/L (22.0-26.0); PCO2 38.9 mmHg (35.0-45.0); PO2 131.1 mmHg (80.0-100.0); pH 7.433 (7.360-7.450); sO2 98.7 % (92.0-98.0)
[2020-12-24] VITALS (48 sets, daily range): BP systolic 99–151; BP diastolic 61–89
[2020-12-24 05:05] LABS: BE(vivo) 0.1 mmol/L (-2 to +3); HCO3 24.9 mmol/L (22.0-26.0); PCO2 41.1 mmHg (35.0-45.0); PO2 59.3 mmHg (80.0-100.0); pH 7.401 (7.360-7.450); sO2 90.8 % (92.0-98.0)
[2020-12-24 05:52] LABS: HEMATOCRIT 32.4 % (37.0-47.0); HEMOGLOBIN 10.7 gm/dL (12.0-15.0); MCH 29.7 pg (26.0-34.0); MCHC 32.9 g/dL (28.0-37.0); MCV 90.5 fL (80.0-100.0); RBC 3.58 mil/uL (4.20-5.00); RDW 13.5 % (10.5-14.5); WBC 9.1 thou/uL (4.0-11.0)
[2020-12-24 06:05] LABS: CALCIUM 7.3 mg/dL (8.5-10.1); CREATININE 0.8 mg/dL (0.6-1.0); POTASSIUM 3.3 mmol/L (3.5-5.1)
--- NOTE | 2020-12-24 09:17 | NUR ---
Patient's , King, called and updated on patient condition.
--- NOTE | 2020-12-24 14:38 | NUR ---
Chart review, discussed during lost with hospitalist and unite rounds with pulmonary. COVID +, Vent, nutritional support. Isolation. No anticipated discharge. Will cont. following as needed for discharge needs.
--- NOTE | 2020-12-24 17:05 | NUR ---
PATIENT PRONE AT THIS TIME.
--- NOTE | 2020-12-24 19:58 | NUR ---
Patient not progressing towards plan of care as evidenced by continued need of ventilator support. Plan of care is to continue to alternate prone/supine/repositioning, monitor oxygen requirements, and provide patient specific care.
[2020-12-25] VITALS (36 sets, daily range): BP systolic 103–146; BP diastolic 66–95
[2020-12-25 04:52] LABS: MCH 29.3 pg (26.0-34.0); MCHC 32.5 g/dL (28.0-37.0); MCV 90.2 fL (80.0-100.0); RBC 3.77 mil/uL (4.20-5.00); RDW 13.3 % (10.5-14.5); WBC 11.8 thou/uL (4.0-11.0)
[2020-12-25 05:03] LABS: CALCIUM 7.7 mg/dL (8.5-10.1); CREATININE 0.7 mg/dL (0.6-1.0); POTASSIUM 3.6 mmol/L (3.5-5.1)
--- NOTE | 2020-12-25 09:47 | NUR ---
King Kee, patient's , updated on patient condition and plan of care. Will plan on proning the patient this afternoon. Paitent well sedated in bed, wakes with oral care and turns.
--- NOTE | 2020-12-25 18:00 | NUR ---
Patient had been on 55% FiO2, s/p proning, was desaturating into mid-80s. Sedation increased due to patient coughing and trying to sit up while in prone position. Patient suctioned and FiO2 increased to 65%. Patient tolerated this well. patient slowly progressing towards goal, improvement in FiO2 and PEEP today. Tube feeds and flushes at goal with Beneprotein given Q6H.
[2020-12-26] VITALS (69 sets, daily range): BP systolic 80–140; BP diastolic 49–89
[2020-12-26 04:56] LABS: HEMATOCRIT 34.6 % (37.0-47.0); HEMOGLOBIN 11.4 gm/dL (12.0-15.0); MCH 29.8 pg (26.0-34.0); MCV 90.5 fL (80.0-100.0); RBC 3.82 mil/uL (4.20-5.00); RDW 13.7 % (10.5-14.5); WBC 11.9 thou/uL (4.0-11.0)
[2020-12-26 04:57] LABS: BE(vivo) -1.3 mmol/L (-2 to +3); HCO3 23.4 mmol/L (22.0-26.0); PCO2 39.3 mmHg (35.0-45.0); PO2 57.1 mmHg (80.0-100.0); pH 7.392 (7.360-7.450); sO2 89.6 % (92.0-98.0)
[2020-12-26 06:03] LABS: CALCIUM 7.9 mg/dL (8.5-10.1); CREATININE 0.6 mg/dL (0.6-1.0)
--- NOTE | 2020-12-26 09:19 | NUR ---
Updated patient's , King Kee, regarding patient condition and increased oxygen demands. Questions answered. Patient is currnetly on 90% FiO2 with increased secretions suctioned from OETT.
[2020-12-26 16:00] LABS: BE(vivo) -2.4 mmol/L (-2 to +3); HCO3 23.6 mmol/L (22.0-26.0); PO2 91.4 mmHg (80.0-100.0); pH 7.337 (7.360-7.450); sO2 96.5 % (92.0-98.0)
--- NOTE | 2020-12-26 18:15 | NUR ---
Patient required extra sedation and oxygenation this afternoon. Was tachycardic and tachypnic. O2 increased to 100% until patient recovered from turn and care. Is on low dose levophed at this time. Patient has been weaned down to 90% FiO2 once again. Dr. Wade aware of patient flagging for sepsis. Blood cultures sent. No fluid bolus indicated as CVP is 10. Lactic acid reported to Dr. Waed. No further orders received.
--- NOTE | 2020-12-26 23:20 | NUR ---
UPON INITIAL ASSESSMENT, PT SEDATED WITH PROPOFOL, VERSED, AND FENTANYL FOR VENT MANAGEMENT. ATTEMPTED TO DECREASE VERSED GTT SLIGHTLY AND PUT PT ON CLRT. PT DID NOT TOLERATED REPOSITIONING OR SEDATION CHANGE. SPO2 87-90% ON 90% FIO2. RR 30S. HR INCREASED TO LOW 100S. CVP >15. INCREASED VERSED AND PROPOFOL GTTS. TURNED OFF CLRT. RT INCREASED FIO2 TO 100%. AFTER ABOUT 1-1.5 HOURS, PT EVENTUALLY RELAXED, RR IMPROVED, CVP 9-12, HR 80S-90S, SPO2 >95% ON 100% FIO2. WILL CONTINUE TO MONITOR CLOSELY.
[2020-12-27] VITALS (56 sets, daily range): BP systolic 100–168; BP diastolic 58–98
[2020-12-27 04:56] LABS: HEMATOCRIT 31.9 % (37.0-47.0); HEMOGLOBIN 10.5 gm/dL (12.0-15.0); MCH 29.9 pg (26.0-34.0); MCV 90.6 fL (80.0-100.0); RBC 3.52 mil/uL (4.20-5.00); RDW 13.8 % (10.5-14.5); WBC 17.1 thou/uL (4.0-11.0)
--- NOTE | 2020-12-27 05:19 | NUR ---
PT HAS BEEN TOLERATING VENT BETTER AND MAINTAINING O2 SATS 95-100% WITH INCREASED SEDATION. BP STABLE WITH LEVOPHED GTT AT LOW-DOSE. LOPEZ TO DD WITH GOOD URINE OUTPUT. TOLERATING TF WILL WITH NO RESIDUALS OVERNIGHT. PT HAD SMALL BOWEL MOVEMENT EARLY THIS MORNING. NOT TOLERATING TURNS WELL. SHE REMAINS ON 100% FIO2. NOT PROGRESSING WELL TOWARD POC GOALS. WILL MONITOR FURTHER.
--- NOTE | 2020-12-27 14:40 | NUR ---
PT IS NOT PROGRESSING TOWARDS DISCHARGE AT THIS TIME, RN ATTEMPTED TO WEAN THE PT TO LOWER FIO2 SETTING, PT NOT TOLERATE WHEN FIO2 DECREASED TO 80% EVIDENCED BY TACHYPNEA AND TACHYCARDIA. PT'S JACINTO CALLED THIS MORNING, VERIFIED INFO VIA NAME AND PT CODE, AROUND 0930 CALLED, RN PROVIDED UPDATE REGARDING VENTILATOR SETTING, NEED FOR MULTIPLE SEDATION MEDICATION, OVERNIGHT EVENTS, AND NUTRITIONAL TOLERANCE. JACINTO STATED THAT HE CALLS 3 TIMES A DAY AND WAS A PRIOR COVID PATIENT OF RECENTLY. RN REMINDED JACINTO TO CALL WHEN NEEDED, AND RN WILL CALL WITH UPDATES STATUS CHANGES. CONTINUING TO MONITOR.
--- NOTE | 2020-12-27 16:08 | NUR ---
Chart review, discussed during am unite rounds and los. KADEID, enhanced isolation. Vent and nutritional support. Will cont. following as needed for dc needs.
[2020-12-28] VITALS (44 sets, daily range): BP systolic 91–177; BP diastolic 60–97
--- NOTE | 2020-12-28 00:01 | NUR ---
2100 - PT'S (JACINTO) CALLED FOR UPDATE. ALL QUESTIONS ANSWERED. HE STATED HE WOULD CALL BACK AGAIN TOMORROW MORNING.
--- NOTE | 2020-12-28 03:37 | NUR ---
PT HAD PERIODS OF TACHYPENIA AND TACHYCARDIA (HR 110S-130S) DURING THE NIGHT, ALONG WITH LABORED BREATHING OVER THE VENT. DURING THESE EPISODES, SPO2 87-90%. SHE REMAINS ON THE VENT WITH 80% FIO2. INCREASED SEDATION WITH PROPOFOL/VERSED/FENTANYL DRIPS, WHICH DID HELP WITH RR AND HR. PT DOES NOT TOLERATE TURNS WELL, CAUSING INCREASED RR AND HR WELL. SHE REMAINS OFF LEVOPHED GTT MAP >65 AND SBP >90. LOPEZ TO DD WITH ADEQUATE URINE OUTPUT. TF VIA OGT; TOLERATING WELL WITH MINIMAL RESIDUALS. NOT PROGRESSING WELL TOWARD POC GOALS. WILL MONITOR CLOSELY.
--- NOTE | 2020-12-28 10:30 | NUR ---
PT IS NOT PROGRESSING TOWARDS DISCHARGE AT THIS TIME, AEB, NOT BEING ABLE TO TOLERATE THE VENTILATOR VOLUME AT A CONSITENT BASIS, SEDATION WAS DISCUSSED DURING ROUNDING, PRECEDEX GTT TO BE STARTED, LONG STANDING HISTORY OF MORPHINE USAGE (9YEARS) FOR CHRONIC BACK PX PER . VENTILATOR SETTINGS REMAIN RELATEVILY SIMILAR TO YESTERDAY. NO SIGNIFICANT CHANGES, PT HAVING CONSISTNENT BOWEL MOVEMENTS WITH CURRENT REGIMEN. SPOKE WITH JACINTO AROUND 0915, PT IDENTIFIER PROVIDED PER, DISCUSSED REGARDING VENTILATOR SETTINGS, NEED FOR ADDITIONAL DRIP FOR SEDATION, BEING OFF OF A PRESSOR, AND CONSISTENT BOWEL MOVEMENTS. REMINDED PT'S CRITICAL STATUS WHILE BEING ADMITTED IN THE ICU, REMINDED TO CALL IF NEEDED AND WILL CALL IF STATUS CHANGES. CONTINUING TO MONITOR.
--- NOTE | 2020-12-28 21:40 | NUR ---
Pt's called for an updates.
[2020-12-29] VITALS (26 sets, daily range): BP systolic 104–191; BP diastolic 60–111
[2020-12-29 05:24] LABS: HEMATOCRIT 32.5 % (37.0-47.0); HEMOGLOBIN 10.8 gm/dL (12.0-15.0); MCHC 33.1 g/dL (28.0-37.0); MCV 90.6 fL (80.0-100.0); PLATELET COUNT 208 thou/uL (150-400); RBC 3.58 mil/uL (4.20-5.00); RDW 13.9 % (10.5-14.5); WBC 15.6 thou/uL (4.0-11.0)
[2020-12-29 05:45] LABS: CALCIUM 8.2 mg/dL (8.5-10.1); CREATININE 0.6 mg/dL (0.6-1.0); MAGNESIUM 2.7 mg/dL (1.8-2.4); POTASSIUM 4.7 mmol/L (3.5-5.1)
[2020-12-29 09:18] LABS: BE(vivo) 5.5 mmol/L (-2 to +3); HCO3 30.4 mmol/L (22.0-26.0); PCO2 45.8 mmHg (35.0-45.0); PO2 65.6 mmHg (80.0-100.0); sO2 93.5 % (92.0-98.0)
[2020-12-29 12:20] LABS: ALBUMIN 2.5 g/dL (3.4-5.0); TOTAL BILIRUBIN 0.2 mg/dL (0.2-1.0); TOTAL PROTEIN 5.6 g/dL (6.4-8.2)
[2020-12-29 13:44] LABS: METAMYELOCYTES 3 %
[2020-12-30] VITALS (43 sets, daily range): BP systolic 80–179; BP diastolic 52–104
--- NOTE | 2020-12-30 06:31 | NUR ---
Pt is well tolerating being prone. No event in this shift.VSS. Well james TF.
--- NOTE | 2020-12-30 10:10 | NUR ---
Patient's , King, called and updated on patient condition and plan of care.
--- NOTE | 2020-12-30 13:57 | NUR ---
PRN hydralazine given for SBP>170, dropped BP significantly but patient was able to correct without intervention. Dr. Joshi notified, new order for PRN Hydralazine was received.
[2020-12-31] VITALS (47 sets, daily range): BP systolic 94–163; BP diastolic 60–91
[2020-12-31 06:02] LABS: HEMATOCRIT 34.3 % (37.0-47.0); HEMOGLOBIN 11.4 gm/dL (12.0-15.0); MCHC 33.1 g/dL (28.0-37.0); MCV 90.5 fL (80.0-100.0); RBC 3.79 mil/uL (4.20-5.00); RDW 13.9 % (10.5-14.5); WBC 10.5 thou/uL (4.0-11.0)
[2020-12-31 06:18] LABS: CREATININE 0.5 mg/dL (0.6-1.0)
--- NOTE | 2020-12-31 14:24 | NUR ---
Chart review, discussed during am unite rounds and los with hospitalist. COVID +. Vent, nutritional support . Enhanced isolation. Cm spoke with spouse King, he voiced during phone call, he got really scared with cm intro case management and he thought something was wrong. CM apologized many times. You can talk with rachel son Javan [phone], if you must talk with family, this just scared me. I am on oxygen with covid myself and not doing well, I will cont. to talk with her nurse lindsey Malik. . Will cont. following as needed for discharge needs.
--- NOTE | 2020-12-31 19:57 | NUR ---
Patient proned from 0745 to 1745. Patient tolerated well. Patient currently on precedex, fent and versed. Patient rcvd vancomycin today, trough drawn before dose was given and lab verified. Pateints and niece updated via telephone today, all questions answered. No adverse events or significant changes. Patients care continues.
[2021-01-01] VITALS (46 sets, daily range): BP systolic 89–202; BP diastolic 53–98
[2021-01-01 08:02] LABS: ABSOLUTE NEUTROPHILS 8.9 thou/uL (1.4-8.2); BASOPHILS 0.1 % (0.0-2.0); EOSINOPHILS 0.1 % (0.0-3.0); HEMATOCRIT 34.2 % (37.0-47.0); LYMPHOCYTES 3.5 % (24.0-44.0); MCH 29.3 pg (26.0-34.0); MCHC 32.2 g/dL (28.0-37.0); MCV 90.7 fL (80.0-100.0); MONOCYTES 3.5 % (1.0-8.0); PLATELET COUNT 153 thou/uL (150-400); POLYS 92.8 % (36.0-66.0); RBC 3.77 mil/uL (4.20-5.00); RDW 13.9 % (10.5-14.5); WBC 9.6 thou/uL (4.0-11.0)
[2021-01-01 08:27] LABS: CALCIUM 8.1 mg/dL (8.5-10.1); CREATININE 0.5 mg/dL (0.6-1.0); POTASSIUM 5.1 mmol/L (3.5-5.1); TOTAL BILIRUBIN 0.3 mg/dL (0.2-1.0); TOTAL PROTEIN 5.2 g/dL (6.4-8.2)
[2021-01-02] VITALS (36 sets, daily range): BP systolic 72–214; BP diastolic 42–119
[2021-01-02 05:24] LABS: ALBUMIN 2.1 g/dL (3.4-5.0); CALCIUM 8.2 mg/dL (8.5-10.1); CREATININE 0.5 mg/dL (0.6-1.0); MAGNESIUM 2.3 mg/dL (1.8-2.4); TOTAL BILIRUBIN 0.3 mg/dL (0.2-1.0); TOTAL PROTEIN 5.3 g/dL (6.4-8.2)
[2021-01-02 06:39] LABS: ABSOLUTE NEUTROPHILS 10.6 thou/uL (1.4-8.2); BASOPHILS 0.3 % (0.0-2.0); HEMOGLOBIN 10.9 gm/dL (12.0-15.0); LYMPHOCYTES 4.5 % (24.0-44.0); MCH 29.2 pg (26.0-34.0); MCHC 32.1 g/dL (28.0-37.0); MCV 90.8 fL (80.0-100.0); MONOCYTES 4.4 % (1.0-8.0); PLATELET COUNT 169 thou/uL (150-400); POLYS 90.8 % (36.0-66.0); RBC 3.74 mil/uL (4.20-5.00); RDW 13.7 % (10.5-14.5); WBC 11.7 thou/uL (4.0-11.0)
--- NOTE | 2021-01-02 07:14 | NUR ---
Patient not making progress towards outcome goals. Attempted to wean down on sedation, patient became tachypneic, tachycardic and BP elevated, oxygen saturation decreased requiring increase to 60% from 50% sats 92-93%. Rest of vent settings unchanged. Afebrile. Sinus rhythm. Tolerating tube feedings. Patient remains on Versed, Precedex and Fentanyl.
[2021-01-02 14:06] LABS: BE(vivo) 7.8 mmol/L (-2 to +3); HCO3 31.1 mmol/L (22.0-26.0); PO2 57.6 mmHg (80.0-100.0); sO2 92.6 % (92.0-98.0)
--- NOTE | 2021-01-02 18:22 | NUR ---
PATIENT WAS ON CPAP MOST OF THE DAY 02/11 55%. SHE WAS ALERT AND ANSWERING ACCORDINGLY. HER BLOOD GAS WAS WITHIN NORMAL LIMITS, BUT WE WILL TRIAL HER AGAIN TOMORROW TO SEE IF SHE IS ABLE TO MOVE EXTREMETIES.
[2021-01-03] VITALS (51 sets, daily range): BP systolic 69–187; BP diastolic 44–118
--- NOTE | 2021-01-03 16:11 | NUR ---
Chart review, discussed during los with hospitalist and unit rounds with pulmonary Md. Vent support, and nutritional support. Spouse/family has been updated by bedside nurse. will cont. following as needed for dc needs. Out of COVID isolation.
[2021-01-04] VITALS (25 sets, daily range): BP systolic 90–185; BP diastolic 56–120
[2021-01-04 05:59] LABS: HEMATOCRIT 35.3 % (37.0-47.0); HEMOGLOBIN 11.4 gm/dL (12.0-15.0); MCH 29.6 pg (26.0-34.0); MCHC 32.4 g/dL (28.0-37.0); MCV 91.5 fL (80.0-100.0); RBC 3.85 mil/uL (4.20-5.00); RDW 13.9 % (10.5-14.5); WBC 12.2 thou/uL (4.0-11.0)
[2021-01-04 06:13] LABS: CALCIUM 8.6 mg/dL (8.5-10.1); CREATININE 0.5 mg/dL (0.6-1.0); POTASSIUM 4.5 mmol/L (3.5-5.1)
[2021-01-05] VITALS (24 sets, daily range): BP systolic 82–148; BP diastolic 53–92
[2021-01-05 05:49] LABS: HEMATOCRIT 28.8 % (37.0-47.0); MCH 30.2 pg (26.0-34.0); MCHC 32.6 g/dL (28.0-37.0); MCV 92.7 fL (80.0-100.0); RBC 3.11 mil/uL (4.20-5.00); RDW 13.8 % (10.5-14.5); WBC 7.2 thou/uL (4.0-11.0)
[2021-01-05 05:51] LABS: HEMOGLOBIN 9.4 gm/dL (12.0-15.0)
[2021-01-05 05:59] LABS: CALCIUM 8.2 mg/dL (8.5-10.1); CREATININE 0.5 mg/dL (0.6-1.0); POTASSIUM 3.8 mmol/L (3.5-5.1)
[2021-01-05 11:09] LABS: BE(vivo) 8.4 mmol/L (-2 to +3); HCO3 34.2 mmol/L (22.0-26.0); PCO2 51.7 mmHg (35.0-45.0); PO2 64.4 mmHg (80.0-100.0); pH 7.439 (7.360-7.450)
--- NOTE | 2021-01-05 13:05 | NUR ---
ASSUMED CARE OF PATIENT AT 0600 VENTILATOR SETTINGS WERE 16/450/.50 +6. AT 0806 I CHANGED THE MODE OF VENTILATION TO CPAP 10/6 50%. PATIENT TRIALED WELL, FOLLOWING COMMANDS AND ALL PARAMETERS MET. ABG WAS WITHIN NORMAL LIMITS. RESULTS GIVEN TO DR CHEN WHO WANTS TO WAIT ONE MORE DAY TO SEE IF RESPIRATORY PROGRESS CONTINUES.
[2021-01-06] VITALS (63 sets, daily range): BP systolic 75–235; BP diastolic 46–122
[2021-01-06 05:34] LABS: HEMATOCRIT 29.2 % (37.0-47.0); HEMOGLOBIN 9.6 gm/dL (12.0-15.0); MCH 30.5 pg (26.0-34.0); MCV 92.5 fL (80.0-100.0); RBC 3.16 mil/uL (4.20-5.00); RDW 14.3 % (10.5-14.5); WBC 5.4 thou/uL (4.0-11.0)
[2021-01-06 05:39] LABS: CALCIUM 8.1 mg/dL (8.5-10.1); CREATININE 0.5 mg/dL (0.6-1.0); POTASSIUM 4.2 mmol/L (3.5-5.1)
--- NOTE | 2021-01-06 10:26 | NUR ---
1026HRS - PT'S ZIDEIKA-US-VCF @ BEDSIDE.
--- NOTE | 2021-01-06 15:50 | NUR ---
ellen review, discussed during los with hospitalist and unit rounds with pulmonary. Vent, cpap trial, nutritional support, out of COVID isolation. Bedside nurse cont to provide updates to rachel spouse and family. No anticipated dc over the weekend, will cont. following as needed for dc needs.
[2021-01-07] VITALS (56 sets, daily range): BP systolic 63–173; BP diastolic 36–105
[2021-01-07 05:52] LABS: HEMOGLOBIN 9.9 gm/dL (12.0-15.0); MCH 30.7 pg (26.0-34.0); MCHC 33.1 g/dL (28.0-37.0); MCV 92.6 fL (80.0-100.0); RBC 3.24 mil/uL (4.20-5.00); RDW 14.1 % (10.5-14.5); WBC 6.8 thou/uL (4.0-11.0)
[2021-01-07 06:05] LABS: CALCIUM 8.5 mg/dL (8.5-10.1); CREATININE 0.6 mg/dL (0.6-1.0); POTASSIUM 3.8 mmol/L (3.5-5.1)
--- NOTE | 2021-01-07 20:57 | NUR ---
PT AWAKE ALERT RESTLESS COUGHING. IVF, PRECEDEX, VERSED RESTARTED. LUNGS COARSE. VENTILATOR INTACT. OG AND FEEDING INTACT. BS DECREASED. LOPEZ TO DD. PUPILS SLUGGISH. NO BUE ALODIZE MACHINE OPERATOR. NO BLE MOVEMENT.
--- NOTE | 2021-01-07 23:43 | NUR ---
PT AWAKENED, RESTLESS, COUGHING, PT ASKED IF SHE WAS IN PAIN AND SHE SHOOK HER HEAD YES AND SQUEEZED NURSES HAND. VERSED TITRATED AND FENTANYL RESTARTED. CHARGE NURSE UPDATED.
[2021-01-08] VITALS (43 sets, daily range): BP systolic 76–178; BP diastolic 48–124
--- NOTE | 2021-01-08 01:52 | NUR ---
REPORT RECEIVED FROM ROSALIND TERRELL. PT ASSESSED PER ICU PROTOCOL. PT INTUBATED AND SEDATED. OGT IN PLACE WITH TF RUNNING.
[2021-01-08 04:36] LABS: HEMOGLOBIN 9.2 gm/dL (12.0-15.0); MCH 30.1 pg (26.0-34.0); MCHC 32.8 g/dL (28.0-37.0); MCV 91.7 fL (80.0-100.0); RBC 3.05 mil/uL (4.20-5.00); RDW 13.9 % (10.5-14.5); WBC 7.3 thou/uL (4.0-11.0)
[2021-01-08 04:57] LABS: CALCIUM 8.6 mg/dL (8.5-10.1); CREATININE 0.6 mg/dL (0.6-1.0); POTASSIUM 3.7 mmol/L (3.5-5.1)
[2021-01-09] VITALS (57 sets, daily range): BP systolic 66–147; BP diastolic 42–91
--- NOTE | 2021-01-09 04:00 | NUR ---
continues on 50 % fio2 ac 14. she is able to help pull herself over when turning in the bed. she is alert and likes to watch the television. she is cooperative and friendly. bath completed this shift. no changes in condition. continues on tube feedings. blood pressure continues to dip in the piano case maker hours. maintains MAP. her chronic back pain can be alleviated with repositioning.
--- NOTE | 2021-01-09 07:42 | NUR ---
Pt placed on Cpap this am, not tolerated. Pt placed back on the vent with previous settings. RT and this nurse at bedside, pt grabbed ett and attempted to pull tube out with both hands. Patient immediately stopped by nurse and redirected verbally. Patient then grabbed ett with right hand and attempted to pull tube. Unable to redirect patient. New order obtained. Patient restrained with soft wrist restraints for safety at this time. Notified rn charge.
--- NOTE | 2021-01-09 11:01 | NUR ---
0854: Notified patient of the order for restraints. Per , pt has successfully self extubated in the past and has required restraints, despite attempts to redirect. Patient resting comfortably. Vital WNL, pt resting comfortably on the vent.
[2021-01-10] VITALS (48 sets, daily range): BP systolic 104–205; BP diastolic 64–110
[2021-01-10 04:44] LABS: BE(vivo) 7.1 mmol/L (-2 to +3); HCO3 32.5 mmol/L (22.0-26.0); PCO2 50.6 mmHg (35.0-45.0); PO2 73.2 mmHg (80.0-100.0); pH 7.426 (7.360-7.450); sO2 94.9 % (92.0-98.0)
[2021-01-10 05:38] LABS: ABSOLUTE NEUTROPHILS 4.1 thou/uL (1.4-8.2); EOSINOPHILS 0.3 % (0.0-3.0); HEMATOCRIT 28.4 % (37.0-47.0); HEMOGLOBIN 9.3 gm/dL (12.0-15.0); LYMPHOCYTES 6.9 % (24.0-44.0); MCH 30.7 pg (26.0-34.0); MCHC 32.9 g/dL (28.0-37.0); MCV 93.3 fL (80.0-100.0); MONOCYTES 3.1 % (1.0-8.0); PLATELET COUNT 122 thou/uL (150-400); POLYS 89.7 % (36.0-66.0); RBC 3.04 mil/uL (4.20-5.00); RDW 14.9 % (10.5-14.5); WBC 4.6 thou/uL (4.0-11.0)
[2021-01-10 06:14] LABS: ALBUMIN 2.6 g/dL (3.4-5.0); CALCIUM 8.8 mg/dL (8.5-10.1); CREATININE 0.6 mg/dL (0.6-1.0); PHOSPHORUS 3.3 mg/dL (2.6-4.7); POTASSIUM 4.3 mmol/L (3.5-5.1); TOTAL BILIRUBIN 0.3 mg/dL (0.2-1.0); TOTAL PROTEIN 6.1 g/dL (6.4-8.2)
[2021-01-10 12:24] LABS: BE(vivo) 9.1 mmol/L (-2 to +3); HCO3 34.3 mmol/L (22.0-26.0); PCO2 50.1 mmHg (35.0-45.0); PO2 67.6 mmHg (80.0-100.0); pH 7.453 (7.360-7.450)
--- NOTE | 2021-01-10 13:09 | NUR ---
PATIENT'S , JACINTO, INFORMED OF PATIENT'S EXTUBATION AT 1249 OVER THE PHONE.
[2021-01-11] VITALS (36 sets, daily range): BP systolic 126–185; BP diastolic 80–115
--- NOTE | 2021-01-11 16:39 | NUR ---
Discussed during los with hospitalist and during unit am rounds. Extubated on 01/10. o2 5 L per nasal cannula. and nutritional support. Out of covid isolation. Family been her visits. Cont. . Will cont. following as needed. New orders for therapy to eval.
--- NOTE | 2021-01-11 20:00 | NUR ---
UPON START OF SHIFT, PT APPEARS RESTLESS AND ANXIOUS WITH SPO2 89%, HR 145, BP 154/85. PER DAYSHIFT RN, PRECEDEX GTT STOPPED AND AVAILABLE PRN MEDICATIONS GIVEN. CALL PLACED TO NIGHT METALLURGIST PROCESS JEFFREY AND ORDERS RECEIVED. WILL CONTINUE TO MONITOR.
--- NOTE | 2021-01-12 03:14 | NUR ---
PT TRANSFERRED FROM ICU TO ROOM 202, PT IS AWAKE, ALERT, ORIENTEDX3, BP ELEVATED IN THE 160S SYSTOLIC, HR ELEVATED UP TO 150S, PT IS ANXIOUS AND CALLING OUT FOR HELP, PULLING OUT THE NASAL CANULA, C/O CHRONIC BACK PAIN, BRAILLE TRANSCRIBER NOTIFIED, ORDERS RECEIVED AND IMPLEMENTED WITH PARTIAL RELIEF, HR REMAINED ELEVATED,BRAILLE TRANSCRIBER NOTIFIED AND ORDER FOR METOPROLOL AND HALDOL RECEIVED AND GIVEN PER JUL, PT REMAINS AGITATED AND CALLING OUT FOR HELP, AND HR STILL ELEVATED, WILL CONTINUE TO MONITOR
[2021-01-12 05:28] LABS: ABSOLUTE NEUTROPHILS 5.8 thou/uL (1.4-8.2); BASOPHILS 0.3 % (0.0-2.0); EOSINOPHILS 1.7 % (0.0-3.0); HEMATOCRIT 32.7 % (37.0-47.0); LYMPHOCYTES 20.8 % (24.0-44.0); MCH 31.2 pg (26.0-34.0); MCHC 33.6 g/dL (28.0-37.0); MCV 92.7 fL (80.0-100.0); MONOCYTES 10.8 % (1.0-8.0); POLYS 66.4 % (36.0-66.0); RBC 3.53 mil/uL (4.20-5.00); RDW 15.1 % (10.5-14.5); WBC 8.7 thou/uL (4.0-11.0)
[2021-01-12 05:35] LABS: PLATELET COUNT 263 thou/uL (150-400)
[2021-01-12 05:40] LABS: ALBUMIN 3.4 g/dL (3.4-5.0); CALCIUM 9.4 mg/dL (8.5-10.1); CREATININE 0.8 mg/dL (0.6-1.0); PHOSPHORUS 2.8 mg/dL (2.5-4.9); TOTAL BILIRUBIN 0.8 mg/dL (0.2-1.0); TOTAL PROTEIN 7.1 g/dL (6.4-8.2)
[2021-01-12 05:50] LABS: POTASSIUM 2.7 mmol/L (3.5-5.1)
[2021-01-12 08:18] VITALS: BP 183/120
[2021-01-12 17:00] VITALS: BP 187/105
--- NOTE | 2021-01-12 19:44 | NUR ---
ASSUMED CARE OF PT AT 0700. PT HEART RATE IN THE 150'S THIS MORNING. PT VERY RESTLESS PULLING AT PICC LINE AND TAKING OFF O2. DR SHALONDA CABALLERO STARTED HR NOW 118. BILATERAL SOFT WRIST RESTRAINTS PLACED. PT NOTIFIED, AND UPDATED OF PT STATUS. PT IS ALERT AND ORIENTED TIMES THREE, WITH PERIODS OF CONFUSION. PT GRANDDAUGHTER AT BEDSIDE THIS EVENING. WILL CONTINUE TO MONITOR.
[2021-01-12 20:18] VITALS: BP 188/106
[2021-01-12 21:00] VITALS: BP 170/102
[2021-01-12 22:00] VITALS: BP 173/103
[2021-01-12 23:00] VITALS: BP 177/98
[2021-01-13] VITALS (12 sets, daily range): BP systolic 123–175; BP diastolic 57–98
[2021-01-13 05:15] LABS: HEMATOCRIT 30.3 % (37.0-47.0); HEMOGLOBIN 10.2 gm/dL (12.0-15.0); MCHC 33.6 g/dL (28.0-37.0); MCV 92.1 fL (80.0-100.0); RBC 3.29 mil/uL (4.20-5.00); RDW 16.1 % (10.5-14.5); WBC 8.5 thou/uL (4.0-11.0)
--- NOTE | 2021-01-13 05:24 | NUR ---
RECEIVED THE PATIENT ALERT AND ORIENTED BUT CONFUSED.ON RESTRAINT ORDERED SHE HAS BEEN PULLING HER LINES AND O2.ON NASAL CANNULA AT 12LITERS SATURATING WELL.WITH LOPEZ CATHETER INTACT.BLOOD PRESSURE WAS STILL ELEVATED WELL HEART RATE 115-120'S, MAXIMIZED CARDIZEM DRIP TO 20MG/HR AT 2300H.VITAL SIGNS MONTIORED AND RECORDED.THIS MORNING BLOOD PRESSURE AND HEART RATE STARTING TO BE TOWARDS GOAL.TO CONTINOUSLY MONITOR.
[2021-01-13 05:57] LABS: ALBUMIN 3.2 g/dL (3.4-5.0); CALCIUM 9.1 mg/dL (8.5-10.1); CREATININE 0.6 mg/dL (0.6-1.0); MAGNESIUM 1.9 mg/dL (1.8-2.4); TOTAL PROTEIN 6.8 g/dL (6.4-8.2)
[2021-01-13 06:08] LABS: POTASSIUM 2.2 mmol/L (3.5-5.1)
[2021-01-13 06:50] LABS: URINE BILIRUBIN NEGATIVE (Negative); URINE BLOOD 3+ (Negative); URINE CLARITY SL CLOUDY; URINE COLOR YELLOW; URINE GLUCOSE-RANDOM* NEGATIVE (Negative); URINE KETONES TRACE (Negative); URINE PROTEIN (DIPSTICK) 1+ (Negative)
[2021-01-13 06:51] LABS: URINE LEUKOCYTES-REFLEX 2+ (Negative); URINE NITRITE-REFLEX POSITIVE (Negative)
[2021-01-13 07:38] LABS: BACTERIA-REFLEX >30 Many /HPF (None Seen); CASTS None Seen /LPF (None Seen); SQUAMOUS 4-10 Moderate /LPF (0-3); URINE RBC 3-10 Few /HPF (NONE SEEN); YEAST-REFLEX Present (None Seen)
[2021-01-13 07:39] LABS: CALCIUM OXALATE 0-3 Few /LPF (None Seen)
--- NOTE | 2021-01-13 11:42 | 2DMMODE ---
[facility] [place] [address] 2 D/M-MODE ECHOCARDIOGRAM Name: BRY MUNROE Room #: 202-P [facility]#: [id number] Admission: 12/17/20 Attend Phys: Alphonse Joshi MD Discharge: Date of : 57 Report #: [id number] THIS REPORT FOR: cc: Padma Mcdonald MD, Karla L. MD Park, Jin S. MD ~ APPROVED REPORT Study performed: 01/13/2021 09:26:49 EXAM: Comprehensive 2D, Doppler, and color-flow Echocardiogram Patient Location: In-Patient Room #: 202 Status: routine BSA: 1.81 HR: 108 bpm BP: 144/85 mmHg Rhythm: Tachycardia Other Information Study Quality: Good Indications Atrial Fibrillation Dyspnea Tachycardia 2D Dimensions IVSd: 13.87 (7-11mm) LVOT Diam: 23.85 (18-24mm) LVDd: 40.40 mm PWd: 13.32 (7-11mm) Ascending Ao: 32.96 (22-36mm) LVDs: 21.66 (25-40mm) Left Atrium: 27.02 (27-40mm) Aortic Root: 23.55 mm Volumes Left Atrial Volume (Systole) Single Plane 4CH: 16.16 mL Single Plane 2CH: 24.89 mL Biplane LA Volume: 24.00 mL LA ESV Index: 14.00 mL/m2 Aortic Valve AoV Peak Paul.: 1.86 m/s AO Peak Gr.: 13.84 mmHg LVOT Max P.33 mmHg LVOT Max V: 1.35 m/s [facility] [address] [place] [address] 2 D/M-MODE ECHOCARDIOGRAM Name: BRY MUNROE Room #: 202-P [facility]#: [id number] Admission: 12/17/20 Attend Phys: Alphonse Joshi MD Discharge: Date of : 57 Report #: [id number] DORITA Vmax: 3.25 cm2 Mitral Valve E/A Ratio: 0.9 MV Decel. Time: 145.47 ms MV E Max Paul.: 0.85 m/s MV A Paul.: 1.00 m/s MV PHT: 42.19 ms IVRT: 89.97 ms Pulmonary Valve PV Peak Paul.: 1.16 m/s PV Peak Gr.: 5.41 mmHg Tricuspid Valve TR Peak Paul.: 3.44 m/s RAP Estimate: 7.00 mmHg TR Peak Gr.: 47.43 mmHg RVSP: 54.00 mmHg Left Ventricle The left ventricle is normal size. There is normal LV segmental wall motion. Mild concentric left ventricular hypertrophy. Left ventricular systolic function is hyperdynamic. LVEF is >70%. This study is not technically sufficient to allow evaluation of the LV diastolic function. Right Ventricle The right ventricle is normal size. The right ventricular systolic function is normal. Atria The left atrium size is normal. The right atrium size is normal. Aortic Valve The aortic valve is normal in structure. No aortic regurgitation is present. There is no aortic valvular stenosis. Mitral Valve The mitral valve is normal in structure. There is no mitral valve regurgitation noted. No evidence of mitral valve stenosis. Tricuspid Valve The tricuspid valve is normal in structure. Mild tricuspid regurgitation. Pulmonic Valve The pulmonary valve is normal in structure. There is no pulmonic [place] [address] [place] [address] 2 D/M-MODE ECHOCARDIOGRAM Name: BRY MUNROE Jorge Room #: 202-P [facility] .R.#: [id number] Admission: 12/17/20 Attend Phys: Alphonse Joshi MD Discharge: Date of : 57 Report #: [id number] valvular regurgitation. Great Vessels The aortic root is normal in size. IVC is normal in size and collapses >50% with inspiration. Pericardium There is no pericardial effusion. <Conclusion> The left ventricle is normal size. Mild concentric left ventricular hypertrophy. Left ventricular systolic function is hyperdynamic. The right ventricle is normal size. The left atrium size is normal. The aortic valve is normal in structure. There is no mitral valve regurgitation noted. Mild tricuspid regurgitation. <ELECTRONICALLY SIGNED> By: Jeffery Mantilla MD 01/13/21 1142 1142 1142 Jeffery Mantilla MD /INF
--- NOTE | 2021-01-13 15:00 | NUR ---
PT RESTING COMFORTABLY. BILATERAL SOFT WRIST RESTRAINTS IN PLACE PER [facility] PROTOCAL. CARDIZEM GTT TITRATED PER [facility] PROTOCAL. PT HAD LOW GRADE FEVER THIS AM (99.2), ADEQUATE UOP, 1 BM, POOR APPETITE, CENTRAL LINE FUNCTIONING WELL. HOSPITALIST WOULD LIKE TO TX PT TO 3W FOR COVID ISOLATION PRECAUTIONS, EQUIPMENT LEAD WAS NOTIFIED ALONG WITH ID MD/RN, THEY ARE DISCUSSING THE SITUATION. PT AND FAMILY HAVE BEEN THOUROUGHLY UPDATED AND EDUCATED ON PT CONDITION AND POC. PT SLOWLY PROGRESSING TOWARDS POC.
[2021-01-14 04:18] VITALS: BP 145/87
--- NOTE | 2021-01-14 05:01 | NUR ---
PT IS SLEEPY. ON 10 LITERS O2 NASAL CANULLA AT THIS TIME. SINUS RHYTHM NOTED ON THE MONITOR. TAKES PILLS CRUSH UP AND PUT IN APPLESAUSE TO BE GIVEN PER SCHEDULE. LOPEZ TO DD WITH RAY URINE PRESENT. RESTRAINTS PRESENT AT THIS TIME TO KEEP LINES AND DEVICES SECURE ON PT FOR SAFETY. WITH CARE. WILL CONTINUE TO MONTIOR AND ASSESS PER NURSING
[2021-01-14 05:19] LABS: ALBUMIN 2.9 g/dL (3.4-5.0); CALCIUM 8.7 mg/dL (8.5-10.1); CREATININE 0.5 mg/dL (0.6-1.0); PHOSPHORUS 3.8 mg/dL (2.5-4.9)
[2021-01-14 07:20] VITALS: BP 145/86
[2021-01-14 11:30] VITALS: BP 149/85
--- NOTE | 2021-01-14 12:19 | EKG ---
[address] [place] [address] ELECTROCARDIOGRAM REPORT Name: ELPIDIO MUNROENA Jorge Room #: 202-[facility] ..#: [id number] Admission: 12/17/20 Attend Phys: Alphonse Joshi MD Discharge: Date of : 57 Report #: [id number] [facility] Test Date: 2021-01-12 Test Time: 15:57:35 Pat Name: BRY MUNROE Department: Room: [facility] Gender: F [employer] Professor: FSCHWALMARY : [id number] Requested By: Ravi Roberto Order Number: [id number] MD: Jv Fonseca Measurements Intervals Milo Rate: 115 P: 4 KS: 151 QRS: 9 QRSD: 87 T: 269 QT: 304 QTc: 421 Interpretive Statements Sinus tachycardia Left ventricular hypertrophy Inferior infarct, age indeterminate Compared to ECG 12/17/2020 07:40:12 No significant changes Electronically Signed On 01-14-2021 12:19:11 CDT by Jv Fonseca [email or web address] <ELECTRONICALLY SIGNED> By: Jv Fonseca MD, [facility] 01/14/21 1219 1557 1557 Jv Fonseca MD, [facility] /EPI
[2021-01-14 15:50] VITALS: BP 129/77
[2021-01-14 19:28] VITALS: BP 156/80
[2021-01-14 20:23] VITALS: BP 156/80
[2021-01-15] VITALS (7 sets, daily range): BP systolic 149–182; BP diastolic 86–107
--- NOTE | 2021-01-15 04:28 | NUR ---
PT IS ALERT AND AWAKE FOREGETFULL AT TIMES AND FUSSY. PT HAD A BM THIS AM AND DOESNT WANT CHANGED . CARE GIVEN PT CLEANED AND SHEETS CHANGED AND CLEANED UP. LUNGS ARE CLEAR. ON 10 LITERS NASAL CANULA. LOPEZ TO DD WITH YELLOW URINE. CARDIZME DRIP AT 5MG INFUSING. LABS DRAWN THIS AM. CALL LIGHT WITHIN REACH FOR ASSISTANCE PER NURSING
[2021-01-15 06:11] LABS: HEMATOCRIT 29.1 % (37.0-47.0); HEMOGLOBIN 9.6 gm/dL (12.0-15.0); MCH 31.2 pg (26.0-34.0); MCV 94.3 fL (80.0-100.0); RBC 3.09 mil/uL (4.20-5.00); RDW 16.2 % (10.5-14.5)
[2021-01-15 06:28] LABS: ALBUMIN 3.1 g/dL (3.4-5.0); CREATININE 0.6 mg/dL (0.6-1.0); PHOSPHORUS 2.9 mg/dL (2.5-4.9)
[2021-01-15 06:32] LABS: POTASSIUM 2.6 mmol/L (3.5-5.1)
--- NOTE | 2021-01-15 15:11 | NUR ---
PT IS ALERT AND ORIENTED X4. PT DOES HAVE SOME PERIODS OF CONFUSION. BP WAS ELEVATED, GAVE PRN HYDRALAZINE AND WAS EFFECTIVE. PT REFUSED LIDOCAINE PATCH THIS AM AND STATES THAT IT DOES NOT WORK FOR PAIN RELIEF. DIET CHANGED TO NPO EXCEPT MEDS. CALLED RESPIRATORY DUE TO PT BREATHING THROUGH MOUTH AND 10L NC WAS ONLY EFFECTIVE IF PLACED IN PT MOUTH IF SHE DESATS. RESPIRATORY INCREASED NC TO 15L AND PLACED PT ON 50% VENTI MASK. PT CURRENT O2 SATS IS 94% AND TOLERATING WELL.
[2021-01-15 16:16] LABS: CREATININE 0.7 mg/dL (0.6-1.0)
[2021-01-16] VITALS (7 sets, daily range): BP systolic 157–174; BP diastolic 96–109
--- NOTE | 2021-01-16 02:43 | NUR ---
PT IS AWAKE ON 15 LITERS NASAL CANULA ND 50 VENTI MASK NOTED. LUNGS ARE COARSE. ABDOMEN IS ROUND PT ANXIOUS. LORAZEPAM GIVEN TO CALM PT DOWN PT RELAXING NOW AFTER MEDICTION. SCDS ON BILAERAL. CALL LIGHT JEFRY APPLE. DENIES ANY PAIN ISSUES AT THIS TIME. ONGOING NURSING CARE AT THIS TIME AND MANAGEMENT. CONTIUEOUS PULSE OX DESATURATES TO LOW80'S AT TIMES AND THEN 93 AT TIMES. ENCOURAGE REST.
--- NOTE | 2021-01-16 06:30 | NUR ---
PAGED DR. HANSEN PT IS OXYGEN SATURATION IS 88 PERCENT. ON 15 LITERS NASAL CANULA AND 50 PERCENT VENTI MASK. PT PULLS AT MASK AND REAPPLYIED TO PT FREQUENTLY. NEW ORDERS OBATINED WILL GET ABG , BIPAP, AND CHEST X RAY THIS AM FOR PLAN OF CARE. ONGOING FREQUENT CARE REQUIRED
[2021-01-16 06:52] LABS: BE(vivo) 6.3 mmol/L (-2 to +3); PCO2 34.9 mmHg (35.0-45.0); PO2 57.3 mmHg (80.0-100.0); pH 7.538 (7.360-7.450); sO2 92.9 % (92.0-98.0)
[2021-01-16 11:33] LABS: HEMATOCRIT 30.7 % (37.0-47.0); HEMOGLOBIN 9.9 gm/dL (12.0-15.0); MCH 30.3 pg (26.0-34.0); MCHC 32.2 g/dL (28.0-37.0); MCV 94.2 fL (80.0-100.0); PLATELET COUNT 227 thou/uL (150-400); RBC 3.26 mil/uL (4.20-5.00); RDW 16.7 % (10.5-14.5); WBC 13.3 thou/uL (4.0-11.0)
[2021-01-16 12:17] LABS: CALCIUM 8.8 mg/dL (8.5-10.1); CREATININE 0.5 mg/dL (0.6-1.0); POTASSIUM 3.4 mmol/L (3.5-5.1); TOTAL BILIRUBIN 0.8 mg/dL (0.2-1.0); TOTAL PROTEIN 5.8 g/dL (6.4-8.2)
[2021-01-16 12:44] LABS: ABSOLUTE NEUTROPHILS 11.2 thou/uL (1.4-8.2)
[2021-01-16 12:45] LABS: METAMYELOCYTES 2 %
[2021-01-16 12:47] LABS: ANISOCYTOSIS 1+
--- NOTE | 2021-01-16 19:57 | NUR ---
PT IS AXOX2, SOMNOLENT; PT KNOWS HER NAME AND THAT SHE IS IN THE HOSPITAL. VS O2 SATS LOW 90s, AFEBRILE, SR/ST ON THE MONITOR. PT IS ON CARDIZEM GTT AT 5ML/HR. PT O2 SATs WERE IN UPPER 80s UPON SHIFT CHANGE. CXRAY SHOWS CONTINUED BLL INFILTRATES. DR HANSEN CONSULTED. PT STARTED ON BIPAP AT 12BPM, 70% O2. PT MAINTAINED O2 SATs IN UPPER 90s THROUGHOUT SHIFT. POC IS TO CONTINUE TO MONITOR O2 SATs, VS, CONTINUE ABX THERAPY. FALL PRECAUTIONS IN PLACE. NO CONCERNS AT THIS TIME.
[2021-01-17 03:02] VITALS: BP 167/91
[2021-01-17 03:48] LABS: HEMATOCRIT 27.7 % (37.0-47.0); HEMOGLOBIN 9.1 gm/dL (12.0-15.0); MCH 30.9 pg (26.0-34.0); MCHC 32.8 g/dL (28.0-37.0); MCV 94.2 fL (80.0-100.0); RBC 2.94 mil/uL (4.20-5.00); RDW 16.3 % (10.5-14.5); WBC 11.2 thou/uL (4.0-11.0)
[2021-01-17 04:18] LABS: ALBUMIN 2.6 g/dL (3.4-5.0); CALCIUM 8.7 mg/dL (8.5-10.1); CREATININE 0.6 mg/dL (0.6-1.0); PHOSPHORUS 2.9 mg/dL (2.5-4.9); POTASSIUM 3.5 mmol/L (3.5-5.1)
--- NOTE | 2021-01-17 07:19 | NUR ---
USES BIPAP ALL NIGHT.DROWSY BUT EASILY AROUSABLE.OPENS EYES AT TIMES.CARDIZEM GTT CONTINUED.MONITOR SHOWS SR.POC CONTINUED.
[2021-01-17 08:00] VITALS: BP 156/112
--- NOTE | 2021-01-17 10:19 | NUR ---
Pt with poor oral intake since extubated and off tube feeds at least 5 days. Severe wt loss, protein calorie malnutrition. Recommend change IVF to clinimix PPN at 80ml/hr. If prolonged npo or poor intake, may need to consider restart enteral nutrition ? PEG or dobhoff.
--- NOTE | 2021-01-17 18:18 | NUR ---
Patients [facility] ins ended August 04. Patient has exhausted her medicare acute, lifetime reserve and skilled days. [employer] reports active medicaid. Plan to obtain DCN number for medicaid. Patient placed on BIPAP noted poor oral intake. patient may be candidate for LTAC.
--- NOTE | 2021-01-17 19:50 | NUR ---
ASSESSMENT CHARTED -MEDS PER JUL - PT GIVEN FENTANYL FOR CO'S OF BACK PAIN WITH GOOD RELIEF. PT REMAINS ON BIAPA - NPO. PT SAT INTO THE 70'S IF BIPAP DISCONNECTED. PT TO CT SCAN THIS AM - NO ACCUTE PROCESS - INCONTINENT OF A LARGE AMOUNT OF STOOL THIS AM. PT ABLE TO MAKE NEEDS KNOWN AROUNG FACE SHIELD OF BIPAP. ACCUCHEKS CHARTED - COVERED PER SSI PRN. PT APPEARS TO BE COMFORTABLE AT THE PRESENT TIME.
[2021-01-17 23:05] VITALS: BP 164/100
[2021-01-18 03:22] VITALS: BP 138/82
[2021-01-18 07:30] VITALS: BP 140/80
[2021-01-18 11:35] VITALS: BP 155/82
[2021-01-18 13:07] LABS: HEMATOCRIT 32.9 % (37.0-47.0); HEMOGLOBIN 10.6 gm/dL (12.0-15.0); MCH 29.8 pg (26.0-34.0); MCHC 32.2 g/dL (28.0-37.0); MCV 92.6 fL (80.0-100.0); RBC 3.55 mil/uL (4.20-5.00); RDW 15.7 % (10.5-14.5); WBC 16.1 thou/uL (4.0-11.0)
[2021-01-18 13:36] LABS: CALCIUM 9.1 mg/dL (8.5-10.1); CREATININE 0.7 mg/dL (0.6-1.0); MAGNESIUM 1.7 mg/dL (1.8-2.4)
[2021-01-18 13:44] LABS: POTASSIUM 2.9 mmol/L (3.5-5.1)
[2021-01-18 16:40] VITALS: BP 118/81
--- NOTE | 2021-01-18 17:49 | NUR ---
PT RESTED IN BED ON BIPAP. REPLACED POTASSIUM IV PER RPOTOCVOL. ASSESS PT WITH DR. GREY AMD UPDATED SON AT BEDSIDE. WILL CONTINUE TO ASSESS.
[2021-01-18 20:00] VITALS: BP 145/86
[2021-01-19 04:00] VITALS: BP 158/98
[2021-01-19 08:02] VITALS: BP 133/86
[2021-01-19 11:13] VITALS: BP 131/77
--- NOTE | 2021-01-19 11:34 | NUR ---
SPOKE WITH RESPIRATORY WHO WILL TRY TO WEAN PT OFF BIPAP.
--- NOTE | 2021-01-19 13:41 | NUR ---
met with patient to discuss post acute care plans. patient can talk through her mask. Discussed wanted to discuss post acute care with a family member who did she want me to call. She reports to call Mellisa her niece. Rev LTAC Care. Spoke with niece who reports she is familiar with LTAC. She wants referral sent to [facility]. Left brochure in room and alerted to patient discussed with niece.
[2021-01-19 15:33] VITALS: BP 99/68
--- NOTE | 2021-01-19 17:11 | NUR ---
PT RESTED IN BED THIS WITH Q 2 HOUR TURN. RT WAS ABLE TO TITRATE PT DOWN TO 5L SIMPLE MASK. RESTART PT'S DIET PER DR. GREY AND ASSIST WITH FEEDS. WILL CONTINUE TO ASSESS.
[2021-01-19 20:19] VITALS: BP 151/96
[2021-01-20 04:33] VITALS: BP 152/90
[2021-01-20 06:25] LABS: HEMATOCRIT 30.9 % (37.0-47.0); HEMOGLOBIN 10.2 gm/dL (12.0-15.0); MCH 30.4 pg (26.0-34.0); MCV 92.2 fL (80.0-100.0); PLATELET COUNT 243 thou/uL (150-400); RBC 3.35 mil/uL (4.20-5.00); RDW 15.5 % (10.5-14.5); WBC 12.4 thou/uL (4.0-11.0)
[2021-01-20 07:03] LABS: CALCIUM 8.8 mg/dL (8.5-10.1); CREATININE 0.7 mg/dL (0.6-1.0); TOTAL BILIRUBIN 0.6 mg/dL (0.2-1.0); TOTAL PROTEIN 6.5 g/dL (6.4-8.2)
[2021-01-20 08:38] VITALS: BP 96/63
[2021-01-20 09:10] LABS: PLATELET ESTIMATE NORMAL
[2021-01-20 11:08] VITALS: BP 121/80
--- NOTE | 2021-01-20 12:04 | NUR ---
DC planning visit with pt and spouse King at bedside this am. [facility] can accept clinical and may have a bed today;however needing to clarify her insurance coverage and whether auth is needed. LTAC vs SNF stay discussed and both in agreement with [facility] transfer. Pt/spouse indicate goal is for pt to continue with respiratory care and rehab to hopefully return home. SNF also discussed pending her progress. Pt still on bipap at [facility] and when sleeping with 5-8liters. PT/OT/ST working with pt. Pt able to participate in conversation and indicates her spouse needs to be the primary contact and her niece as an alternate. Care team and UR alerted to LTAC acceptance pending ins clearance. Chart copy in progress.
[2021-01-20 15:33] VITALS: BP 98/70
--- NOTE | 2021-01-21 02:35 | NUR ---
PT IS ALERT AND ORIENTED X4. ON BIPAP AT 40 PERCENT. MAINTAINING O2 SATURATION OF 99 PERCENT. LUNGS ARE COARSE TO DIMINISHED. TAKES MEDS IN APPLESAUSE. PAIN MEDS GIVEN FOR BACK PAIN PT REPORTS. RELIEF PT FELL ASLEEP AFTER MEDS GIVEN LOPEZ TO DD WITH YELLOW URINE. PT TRIES TO TAKE HER PULSE OX OFF AND BIPAP OFF DURING THE NIGHT DURING PERIODS OF THE SHIFT. ONGOING NURSING CARE. CALL LIGHT WITHIN REACH
[2021-01-21 04:17] VITALS: BP 90/82
[2021-01-21 06:09] LABS: ABSOLUTE NEUTROPHILS 11.6 thou/uL (1.4-8.2); EOSINOPHILS 0.1 % (0.0-3.0); HEMATOCRIT 32.2 % (37.0-47.0); HEMOGLOBIN 10.8 gm/dL (12.0-15.0); LYMPHOCYTES 7.3 % (24.0-44.0); MCH 30.8 pg (26.0-34.0); MCHC 33.6 g/dL (28.0-37.0); MCV 91.5 fL (80.0-100.0); MONOCYTES 6.8 % (1.0-8.0); PLATELET COUNT 263 thou/uL (150-400); POLYS 85.8 % (36.0-66.0); RBC 3.52 mil/uL (4.20-5.00); RDW 15.8 % (10.5-14.5); WBC 13.5 thou/uL (4.0-11.0)
[2021-01-21 06:35] LABS: ALBUMIN 2.9 g/dL (3.4-5.0); CALCIUM 9.3 mg/dL (8.5-10.1); CREATININE 0.7 mg/dL (0.6-1.0); POTASSIUM 3.5 mmol/L (3.5-5.1); TOTAL BILIRUBIN 0.7 mg/dL (0.2-1.0)
[2021-01-21 07:45] VITALS: BP 104/69
[2021-01-21 08:07] VITALS: BP 152/62
[2021-01-21 12:00] VITALS: BP 118/72
--- NOTE | 2021-01-21 12:24 | NUR ---
[facility] can accept and they have submitted for ins auth. They may have a bed available this weekend or on Sunday once insurance approval obtained. They have updated the pt's spouse and answered questions about their location/services. Care team updated.
[2021-01-21 15:30] VITALS: BP 165/99
[2021-01-21 19:26] VITALS: BP 157/75
[2021-01-22] VITALS (8 sets, daily range): BP systolic 71–149; BP diastolic 38–95
[2021-01-22 06:32] LABS: CALCIUM 9.2 mg/dL (8.5-10.1); CREATININE 0.7 mg/dL (0.6-1.0); POTASSIUM 3.8 mmol/L (3.5-5.1)
--- NOTE | 2021-01-22 08:22 | NUR ---
ASSUMED PATIENT CARE AT 1900H 01/21/21.PATIENT IS ALERT AND ORIENTED BUT SOMETIMES FORGETFUL AND CONFUSED.ON OXYGEN SUPPORT AT 9LPM, SATURATING WELL.WITH LOPEZ CATHETER INTACT.WITH RIGHT JUGULAR CENTRAL LINE INTACT.SINUS RYTHM ON THE MONITOR.PAIN MANAGMENT OBSERVED THROUHGOUT THE SHIFT.AT AROUND 0645H, PATIENT PULLED OUT HER CENTRAL LINE ACCIDENTALLY.APPLIED PRESSURE DRESSING ON THE SITE.INFORMED ABSTRACT MANAGER ABOUT IT.TRIED TO REINSERT IV BUT FAILED.TO CONTACT IV TEAM THIS MORNING.NO COMPLICATIONS NOTED FROM THE PREVIOUS CENTRAL LINE SITE.ALL NEEDS ATTENDED.
--- NOTE | 2021-01-23 01:39 | NUR ---
ASSUMED CARE OF PT AT 1900. REPORT RECIEVED. JEANNINE ASSESSMENT COMPLETE. NEW ORDERS AT [facility] FOR 500 ML BOLUS. BOLUS ADMINISTERED ORDEDED. BP RUNNING LOW AT [facility], RECHECKED AROUND 2200 131/86. PT TOLERATING 3 LC NC. PT C/O GENERALIZED BACK PAIN. MEDICATIONS GIVEN ORDERED AND REPOSITIONING UTILIZED FOR COMFORT. LOPEZ CARE COMPLETE. R HAND PIV CDI, PATENT. HIGH FALL RISK PRECAUTIONS IN PLACE. ALL NEEDS MET, PT DENIES ANY THING ELSE AT THIS TIME. CONTINOUS PULSE OX IN PLACE. CALL LIGHT IN REACH
[2021-01-23 04:41] VITALS: BP 154/97
[2021-01-23 05:36] LABS: HAV IgM AB (ANTI-HAV IgM) Negative (Negative); HEPATITIS B SURFACE AG Negative (Negative); HEPATITIS C VIRUS AB <0.1 (0.0-0.9)
[2021-01-23 07:37] VITALS: BP 107/68
--- NOTE | 2021-01-23 13:26 | NUR ---
A/O X 3. ON 3 L O2 VIA NASAL CANNULA. 2 ASSIST FOR TRANSFERS. RIGHT HAND IV, DRESSING DRY, CLEAN, AND INTACT. LOPEZ PATENT, RAY URINE NOTED. TOLERATING NECTAR THICK LIQUIDS AND MECHANICAL SOFT DIET. CHRONIC BACK PAIN NORCO GIVEN WITH APPLE SAUCE. CURRENTLY UP IN HER CHAIR.
[2021-01-23 14:27] VITALS: BP 145/93
[2021-01-23 19:11] VITALS: BP 129/89
[2021-01-24 04:33] VITALS: BP 144/87
--- NOTE | 2021-01-24 04:41 | NUR ---
PT ASSISTED TO BED EXTENSIVE ASSIST, SLEPT THROUGHOUT THE NIGHT, NO PAIN OR DISCOMFORT REPORTED WILL CONTINUE TO MONITOR.
[2021-01-24 05:27] LABS: HEMATOCRIT 32.8 % (37.0-47.0); HEMOGLOBIN 10.7 gm/dL (12.0-15.0); MCH 30.4 pg (26.0-34.0); MCHC 32.5 g/dL (28.0-37.0); MCV 93.4 fL (80.0-100.0); PLATELET COUNT 257 thou/uL (150-400); RBC 3.51 mil/uL (4.20-5.00); RDW 16.3 % (10.5-14.5); WBC 11.2 thou/uL (4.0-11.0)
[2021-01-24 05:46] LABS: ALBUMIN 3.2 g/dL (3.4-5.0); CALCIUM 9.4 mg/dL (8.5-10.1); CREATININE 0.6 mg/dL (0.6-1.0); POTASSIUM 3.7 mmol/L (3.5-5.1); TOTAL BILIRUBIN 0.4 mg/dL (0.2-1.0); TOTAL PROTEIN 6.6 g/dL (6.4-8.2)
[2021-01-24 08:07] VITALS: BP 132/86
--- NOTE | 2021-01-24 11:27 | NUR ---
ON-GOING ASSESSMENT: CM REVIEWED CHART AND MET WITH PATIENT. INSURANCE AUTH IS STILL PENDING FOR [facility]. CM NOTIFIED PATIENT OF THIS INFORMATION WELL HER NIECE JANNA. CM ALSO ATTEMPTED TO LEAVE A VM FOR PATIENTS . CM FAXED UPDATED CLINICAL TO [facility] AND AWAITING FURTHER INPUT REGARDING INSURANCE AUTH AT THIS TIME. CM WILL CONTINUE TO FOLLOW.
[2021-01-24 14:51] LABS: ABSOLUTE NEUTROPHILS 7.8 thou/uL (1.4-8.2); METAMYELOCYTES 4 %; MYELOCYTES 2 %
[2021-01-24 14:52] LABS: ANISOCYTOSIS 1+
[2021-01-24 15:54] VITALS: BP 96/61
--- NOTE | 2021-01-24 18:30 | NUR ---
PT ASSESSED AT START OF SHIFT. PT GETTING SOME STRONGER BUT STILL W/ VERY WEAK LEGS FOR TRANSFERS. PT TRANSFERRED PT TO AND FROM CHAIR NURSING UNABLE. HR BECOMES MORE TACHY WHEN IN PAIN W/ BACK. LIKES TO LIE ON HER SIDES FOR RELIEF. NO BM THIS SHIFT. EATS FAIR W/ NEEDS ASSIST W/ TRAY SETUP. SPEECH REEVALUATED SWALLOW AND SHE CAN HAVE THIN LIQUIDS NOW. CONT. PULSE OX 97% ON 3L.
[2021-01-24 19:32] VITALS: BP 137/86
[2021-01-25 04:28] VITALS: BP 145/91
[2021-01-25 08:09] VITALS: BP 95/52
[2021-01-25] MEDS ORDERED: MORPHINE SULFAT15 M4 PO (08:52)
[2021-01-25] MEDS ORDERED: MS CONTIN 30 MG30 M1 PO (08:53)
--- NOTE | 2021-01-25 09:15 | NUR ---
ON-GOING ASSESSMENT: CM REVIEWED CHART AND SPOKE WITH ATTENDING. PT IS PROGRESSING TOWARDS DISCHARGE GOALS. CONTINUING TO ATTEMPT TO MANAGE PTS PAIN. CM SPOKE WITH PATIENT LTAC WAS DENIED BY HER INSURANCE AND DR. GREY COMPLETED THE PEER TO PEER AND PT DENIED LTAC BUT HE REPORTS THEY WILL APPROVE SNF. CM DISCUSSED WITH PATIENT AND PROVIDED HER WITH AN IN-NETWORK SNF LIST TO REVIEW. SHE REPORTS SHE IS GOING TO CALL HER NIECE TO DISCUSS WELL HER . CM OFFERED TO CONTACT HER FAMILY TO DISCUSS BUT PT STATES SHE WILL KEEP THEM UPDATED AND REVIEW THE SNF LIST AND GET BACK TO CM WITH CHOICES.
--- NOTE | 2021-01-25 13:34 | NUR ---
PT ALERT AND ORIENTED TIMES FOUR. VSS. PT DENIES PAIN. PT TOLERATES MEDS AND MEALS. PT AT BEDSIDE. PT PROGRESSING TOWRADS POC GOALS.
[2021-01-25 17:07] LABS: ANTI-VCA/IgG >600.0 U/mL (0.0-17.9); ANTI-VCA/IgM <36.0 U/mL (0.0-35.9)
[2021-01-25 19:55] VITALS: BP 156/107
[2021-01-26 03:00] VITALS: BP 127/86
--- NOTE | 2021-01-26 05:38 | NUR ---
PT CONTINUES TO BE ON /NC -CONT PULSE OX IN PLACE. SATTING ABOVE 95%.PT SWALLOWING MEDS WELL WITH APPLESAUCE.CHRONIC PAIN TO BACK, CONTINUES ON SCHEDULED AND PRN PAIN REGIMEN.CALL LIGHT WITHIN REACH.
[2021-01-26 08:30] VITALS: BP 85/53
[2021-01-26 08:32] VITALS: BP 78/55
[2021-01-26] MEDS ORDERED: LASIX 40 MG TAB40 M1 PO (12:12)
[2021-01-26] MEDS ORDERED: PREDNISONE 10 M10 MG PO (12:12)
--- NOTE | 2021-01-26 13:13 | NUR ---
FAXED DISCHARGE ORDERS AND SUMMARY TO DEMETRICE APPIA[facility]. WILL CONFIRM THEY RECEIVED. DEMETRICE APPIAH P [phone]; FAX [phone]
--- NOTE | 2021-01-26 14:23 | NUR ---
CARE TEAM INDICATED THAT PT IS MEDICALLY STABLE TO DC TO SKILLED AT [facility] PL[facility] THIS DAY. THEY GOT INSURANCE AUTH THIS AM. [facility] ADMISSIONS LIAISON HAD SPOKEN WITH PT'S SPOUSE TWICE THIS DAY. SHE INDICATED THAT THEY HAD SOMEONE IN THE FACILITY TEST POSITIVE SO THEY ARE CLOSED TO VISITORS FOR THE NEXT 10 DAYS. SHE STATED THAT SHE HAD EXPLAINED THAT TO PT'S SPOUSE AND HE WAS AWARE AND STILL AGREEABLE WITH PT GOING THERE. CM MET WITH PT AND SPOUSE AT BEDSIDE THIS DAY AND THEY WERE AGREEABLE TO DC TO [facility]. [facility]AN TRANSPORT WITH 2L O2 SET UP FOR 1600. CHART COPY MADE. ORDERS FAXED. NURSE GIVEN NUMBER FOR REPORT. NO OTHER CM INTERVENTION INDICATED. CASE CLOSED.
[2021-01-26 16:12] VITALS: BP 163/98; BP 176/98
--- NOTE | 2021-01-26 16:40 | NUR ---
PT ALERT AND ORIENTED TIMES THREE WITH PERIODS OF CONFUSION, AND SOMEWHAT SLOW TO RESPOND TO QUESTIONS. PT C/O PAIN SCHEDULED AND PRN PAIN MEDICATIONS CONTROLLING PAIN WELL. PT WORKED WELL WITH PT/OT TODAY. PT EATS SMALL PORTIONS OF MEALS. PT AT BEDSIDE. WILL CONTINUE TO MONITOR.
== END 2021-01-26 17:34 | DRG 870 ==
LOC: ER 07:39 → 2N 08:49 → 3W 08:49 → EROBS 08:49 → 3W 12-18 00:55 → ICU 12-23 10:50 → 2N 01-11 22:35 → 4S 01-22 16:03
PROVIDERS: Emergency Medicine; Hospitalist; Internal Medicine Pulmonary Disease; Nurse Practitioner; Nurse Practitioner Family; Pediatrics; Specialist; ADMIT Hospitalist; ATTEND Hospitalist
PROC: XW033E5 Introduction of Remdesivir Anti-infective into Peripheral Vein, Percutaneous Approach, New Technology Group 5 (ICD-10-PCS; principal; 2020-12-17)
PROC: 5A0935A Assistance with Respiratory Ventilation, Less than 24 Consecutive Hours, High Flow/Velocity Cannula (ICD-10-PCS; 2020-12-18)
PROC: 5A09357 Assistance with Respiratory Ventilation, Less than 24 Consecutive Hours, Continuous Positive Airway Pressure (ICD-10-PCS; 2020-12-19)
PROC: 5A0935A Assistance with Respiratory Ventilation, Less than 24 Consecutive Hours, High Flow/Velocity Cannula (ICD-10-PCS; 2020-12-20)
PROC: 5A09357 Assistance with Respiratory Ventilation, Less than 24 Consecutive Hours, Continuous Positive Airway Pressure (ICD-10-PCS; 2020-12-20)
PROC: 5A0935A Assistance with Respiratory Ventilation, Less than 24 Consecutive Hours, High Flow/Velocity Cannula (ICD-10-PCS; 2020-12-21)
PROC: 5A09357 Assistance with Respiratory Ventilation, Less than 24 Consecutive Hours, Continuous Positive Airway Pressure (ICD-10-PCS; 2020-12-22)
PROC: 5A0935A Assistance with Respiratory Ventilation, Less than 24 Consecutive Hours, High Flow/Velocity Cannula (ICD-10-PCS; 2020-12-22)
PROC: 5A0935A Assistance with Respiratory Ventilation, Less than 24 Consecutive Hours, High Flow/Velocity Cannula (ICD-10-PCS; 2020-12-23)
PROC: 5A1955Z Respiratory Ventilation, Greater than 96 Consecutive Hours (ICD-10-PCS; 2020-12-23)
PROC: 5A09357 Assistance with Respiratory Ventilation, Less than 24 Consecutive Hours, Continuous Positive Airway Pressure (ICD-10-PCS; 2020-12-23)
PROC: 0BH17EZ Insertion of Endotracheal Airway into Trachea, Via Natural or Artificial Opening (ICD-10-PCS; 2020-12-23)
PROC: 02HV33Z Insertion of Infusion Device into Superior Vena Cava, Percutaneous Approach (ICD-10-PCS; 2020-12-23)
PROC: 5A0935A Assistance with Respiratory Ventilation, Less than 24 Consecutive Hours, High Flow/Velocity Cannula (ICD-10-PCS; 2020-12-25)
PROC: 5A0945A Assistance with Respiratory Ventilation, 24-96 Consecutive Hours, High Flow/Velocity Cannula (ICD-10-PCS; 2021-01-12)
PROC: 5A0935A Assistance with Respiratory Ventilation, Less than 24 Consecutive Hours, High Flow/Velocity Cannula (ICD-10-PCS; 2021-01-15)
PROC: 5A09457 Assistance with Respiratory Ventilation, 24-96 Consecutive Hours, Continuous Positive Airway Pressure (ICD-10-PCS; 2021-01-16)
PROC: 5A09357 Assistance with Respiratory Ventilation, Less than 24 Consecutive Hours, Continuous Positive Airway Pressure (ICD-10-PCS; 2021-01-21)
DX: A41.9 Sepsis, unspecified organism (principal); U07.1 COVID-19; J12.82 Pneumonia due to coronavirus disease 2019; J80 Acute respiratory distress syndrome; E43 Unspecified severe protein-calorie malnutrition; N17.9 Acute kidney failure, unspecified; G93.40 Encephalopathy, unspecified; E87.0 Hyperosmolality and hypernatremia; I69.351 Hemiplegia and hemiparesis following cerebral infarction affecting right dominant side; D64.9 Anemia, unspecified; N18.30 Chronic kidney disease, stage 3 unspecified; I12.9 Hypertensive chronic kidney disease with stage 1 through stage 4 chronic kidney disease, or unspecified chronic kidney disease; E11.65 Type 2 diabetes mellitus with hyperglycemia; E11.22 Type 2 diabetes mellitus with diabetic chronic kidney disease; E11.42 Type 2 diabetes mellitus with diabetic polyneuropathy; G89.4 Chronic pain syndrome; I10 Essential (primary) hypertension; M54.9 Dorsalgia, unspecified; E87.6 Hypokalemia; R65.20 Severe sepsis without septic shock; R74.01 Elevation of levels of liver transaminase levels; E66.01 Morbid (severe) obesity due to excess calories; Z68.27 Body mass index [BMI] 27.0-27.9, adult
CPT/HCPCS: 10078; 10081; 10102; 10879; 27000; 65040

== ENCOUNTER 2021-02-09 11:49 | Inpatient (IN) | payer OTHER ==
[~2021-02-09] VITALS: Ht 160 cm; Wt 78.9 kg
--- NOTE | ~2021-02-09 | EMS ---
[address] [address] EMS Patient Care Report Name: BRY MUNROE Room #: REG [facility]#: [id number] Admission: 02/09/21 Attend Phys: Discharge: Date of : 57 Report #: [id number] THIS REPORT FOR: //name// Report Transmitted: 02/09/2021 12:[address] [facility] MED-ACT Incident [id number] @ 02/09/2021 11:10 Incident Location Out [facility] [place] [address] Patient BRY MUNROE Female, 66 Years 1955 Patient Address [address] [place] [address] Patient History Hypertension (HTN),Kidney/Renal Failure,Cardiac Condition - Other,Anxiety,Sepsis,None Reported,Novel Coronavirus (COVID-19), Patient Allergies No known allergies, Patient Medications Polyethlene Glycol, Atrovent, Gabapentin, Lasix, Albuterol, Tylenol, Morphine, Xanax, Metoprolol, Prednisone, Colace, Chief Complaint Difficulty breathing Disposition Transported No Lights/[place] Dispatch Reason Altered Mental Status Transported To [facility] Narrative [id number] arrived on scene to find the patient laying supine in the halfway bed. [place] staff advised that they patient had woken up this morning and was her [address] [address] EMS Patient Care Report Name: BRY MUNROE Room #: REG [facility]#: [id number] Admission: 02/09/21 Attend Phys: Discharge: Date of : 57 Report #: [id number] normal self but has had a decrease in her LOC throughout the day and just started having some shortness of breath. Staff advised that the patient is normally very conversational but gives short answers. Patient was A&O but lethargic and opened eyes to verbal stimuli. 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 [facility] advised they arrived and the patient was on O2 via NC at 3lpm which she is always on and advised they got an SPO2 in the mid 70's so they placed a NRB @ 10lpm and her SPOR came up to 100%. They also advised that the patient is hypotensive and they got a BG of 173. Patient was moved to cot>ambulance where an IV was established and a fluid bolus administered, NRB remained on patient. Radio report to [facility], verbal report to RN in ER room 11, RN signed report, [id number] cleared and returned to service. Initial Vitals @11:45P: 72,SpO2: 99,AK Suspected: false @11:41P: 68,R: 22,BP: 92/55,Pain: 0/10,SpO2: 99, @11:46P: 70,R: 22,BP: 88/53,Pain: 0/10,GCS: 14,SpO2: 100,Revised Trauma: 11, @11:34P: 78,R: 20,BP: 56/35,Pain: 0/10,GCS: 14,SpO2: 99,Revised Trauma: 10,AK Suspected: false @PTAP: 70,R: 20,BP: 72/50,Pain: 0/10,GCS: 14,Temp: 96.5F,Glucose: 173,SpO2: 75,Revised Trauma: 10, Impression Hypotension Procedures @11:37Saline Lock 0cc (18 ga) Site: Antecubital-LeftResponse: UnchangedFailed@PTAOxygen FlowRate: 10 Device: Non Re-breather Mask (NRB) Response: ImprovedSucceeded@11:36Normal Saline (.9% NaCl) 150cc (18 ga) Site: Antecubital-RightResponse: UnchangedSucceeded Timeline AVIONICS SYSTEMS ENGINEER,Oxygen FlowRate: 10 Device: Non Re-breather Mask (NRB) Response: ImprovedSucceeded, [employer] SYSTEMS ENGINEER,BP: 72/50 M,PULSE: 70,RR: 20 R,SPO2: 75 Ox,ETCO2: ,B,PAIN: 0,GCS: 14, 11:10,Call Received 11:10,Psap Call 11:10,Dispatched 11:12,En Route 11:22,On Scene 11:25,At Patient 11:34,BP: 56/35 M,PULSE: 78,RR: 20 R,SPO2: 99 Ox,ETCO2: ,BG: ,PAIN: 0,GCS: 14, 11:36,Normal Saline (.9% NaCl) 150cc 18 ga Site: Antecubital-Right,Response: UnchangedSucceeded, [facility] [address] [place] [address] EMS Patient Care Report Name: BRY MUNROE Room #: [facility] Latosha#: [id number] Admission: 02/09/21 Attend Phys: Discharge: Date of : 57 Report #: [id number] 11:37,Saline Lock 0cc 18 ga Site: Antecubital-Left,Response: UnchangedFailed, 11:41,BP: 92/55 M,PULSE: 68,RR: 22 R,SPO2: 99 Ox,ETCO2: ,BG: ,PAIN: 0,GCS: , 11:43,Depart Scene 11:45,BP: / M,PULSE: 72,RR: R,SPO2: 99 Ox,ETCO2: ,BG: ,PAIN: ,GCS: , 11:46,BP: 88/53 M,PULSE: 70,RR: 22 R,SPO2: 100 Ox,ETCO2: ,BG: ,PAIN: 0,GCS: 14, 11:46,At Destination 12:19,Call Closed Disclaimer v1.1 Copyright 2020 [employer] This EMS Care Summary contains data elements from the applicable legal record (which may be displayed differently). It is designed to provide pertinent information for the following purposes: continuity of care, clinical quality, and state data reporting. The complete legal record is available to ED staff and administrators of the receiving hospital in [facility]'s Patient Tracker. All data is provided "as is."
[~2021-02-09 11:49] MED LIST changes: +LASIX 40 MG TAB40 M1 PO; +MORPHINE SULFAT15 M4 PO; +PREDNISONE 10 M10 MG PO
[2021-02-09 11:50] VITALS: BP 99/68
[2021-02-09 12:34] LABS: ABSOLUTE NEUTROPHILS 3.5 thou/uL (1.4-8.2); BASOPHILS 0.6 % (0.0-2.0); EOSINOPHILS 0.8 % (0.0-3.0); HEMATOCRIT 25.4 % (37.0-47.0); HEMOGLOBIN 8.3 gm/dL (12.0-15.0); LYMPHOCYTES 32.3 % (24.0-44.0); MCH 31.7 pg (26.0-34.0); MCHC 32.7 g/dL (28.0-37.0); MCV 97.1 fL (80.0-100.0); MONOCYTES 8.4 % (1.0-8.0); PLATELET COUNT 240 thou/uL (150-400); POLYS 57.9 % (36.0-66.0); RBC 2.62 mil/uL (4.20-5.00); RDW 18.3 % (10.5-14.5); WBC 6.1 thou/uL (4.0-11.0)
[2021-02-09 12:50] LABS: APTT 22.2 Seconds (24.5-32.8); D-DIMER 0.59 ug/mLFEU (0.19-0.50); INR 1.01
[2021-02-09 12:58] LABS: ALBUMIN 2.4 g/dL (3.4-5.0); CALCIUM 8.6 mg/dL (8.5-10.1); CREATININE 0.8 mg/dL (0.6-1.0); MAGNESIUM 1.7 mg/dL (1.8-2.4); TOTAL BILIRUBIN 0.2 mg/dL (0.2-1.0); TOTAL PROTEIN 5.1 g/dL (6.4-8.2)
[2021-02-09 13:09] LABS: POTASSIUM 3.6 mmol/L (3.5-5.1)
[2021-02-09 13:32] LABS: URINE BILIRUBIN NEGATIVE (Negative); URINE BLOOD NEGATIVE (Negative); URINE CLARITY CLEAR; URINE COLOR YELLOW; URINE GLUCOSE-RANDOM* NEGATIVE (Negative); URINE KETONES TRACE (Negative); URINE LEUKOCYTES-REFLEX NEGATIVE (Negative); URINE NITRITE-REFLEX NEGATIVE (Negative); URINE PROTEIN (DIPSTICK) TRACE (Negative); URINE UROBILINOGEN 0.2 E.U./dl (0.2-1.0)
[2021-02-09] MEDS ORDERED: ASPERCREME1 EACH TOP (13:36)
[2021-02-09] MEDS ORDERED: AQUAPHOR HEALIN50 GM TOP (13:36)
[2021-02-09] MEDS ORDERED: ENOXAPARIN40 MG/0.4 SUBQ (13:36)
[2021-02-09] MEDS ORDERED: PROAIR HFA8.5 GM INH (13:37)
[2021-02-09] MEDS ORDERED: TOPROL XL100 MG PO (13:37)
--- NOTE | 2021-02-09 13:40 | EKG ---
[place] [id number] [address] [address] ELECTROCARDIOGRAM REPORT Name: BRY MUNROE Room #: [facility]#: [id number] Admission: 02/09/21 Attend Phys: Discharge: Date of : 57 Report #: [id number] [facility] ED Test Date: 2021-02-09 Test Time: 11:59:44 Pat Name: BRY MUNROE Department: Room: Gender: F Perianesthesia Nurse: JULIOCESAR : 1955 Requested By: Ester Muniz Order Number: [id number] MD: Malachi Bingham Measurements Intervals [place] Rate: 74 P: 23 MD: 170 QRS: 13 QRSD: 94 T: 2 QT: 382 QTc: 424 Interpretive Statements Sinus rhythm Baseline wander in lead(s) V2 Compared to ECG 01/12/2021 15:57:35 Sinus tachycardia no longer present Left ventricular hypertrophy no longer present Myocardial infarct finding no longer present Electronically Signed On 02-09-2021 13:39:44 CDT by Malachi Bingham [email or web address] <ELECTRONICALLY SIGNED> By: Malachi Bingham MD, [facility] 02/09/21 1339 [id number] [id number] Malachi Bingham MD, FACC /EPI
[2021-02-09] MEDS ORDERED: MIRALAX17 G1 PO (13:48)
[2021-02-09] MEDS ORDERED: TIZANIDINE HCL2 M1 PO (13:49)
[2021-02-09] MEDS ORDERED: PREDNISONE5 GM PO (13:49)
[2021-02-09] MEDS ORDERED: XANAX 0.25 MG0.25 MG PO (13:50)
[2021-02-09 14:21] LABS: ANISOCYTOSIS 2+
[2021-02-09 15:43] LABS: BE(vivo) 0.2 mmol/L (-2 to +3); HCO3 25.3 mmol/L (22.0-26.0); PO2 289.9 mmHg (80.0-100.0); pH 7.387 (7.360-7.450); sO2 99.7 % (92.0-98.0)
[2021-02-09 17:22] VITALS: BP 151/70
--- NOTE | 2021-02-09 17:32 | NUR ---
ATTEMPTED TO CALL REPORT X1. CCU TO CALL BACK
[2021-02-09 17:57] VITALS: BP 133/74
[2021-02-09 18:19] VITALS: BP 150/90
--- NOTE | 2021-02-09 18:45 | NUR ---
PT ORIENTED TO ROOM AND UNIT, BED LOW AND LOCKED, SIDE RAILS UP X3, CALL LIGHT IN REACH, TELE APPLIED. DR. RIVAS ASSESS PT AND WILL REMAIN NPO FOR NOW. INSTRUCT CONTINUOUS PULSE OXIMETRY. WILL CONTINUE TO ASSESS.
[2021-02-09 19:32] VITALS: BP 120/85
[2021-02-10 00:06] VITALS: BP 130/84
--- NOTE | 2021-02-10 02:02 | NUR ---
PT ADMITTED TO ROOM 200 WITH SPOUSE AT BEDSIDE OFFERING SUPPORT, ON 50% VENTI MASK WITH CON'T PULSE OX SATING IN MID 90'S, DESATS TO 60'S WHEN MASK WAS OFF, RT TX'S STARTED, PT A&OX3, UP TO BSC,NPO EXCEPT ICE CHIPS, FLUID BOLUS INFUSED AND LOADING DOSE ANTIBIOTICS GIVEN, LACTIC IMPROVED TO 1.0 FROM 4.2, EDUCATION DONE WITH PT NO FURTHER NEED OR QUESTIONS IDENTIFIED, PRN PAIN MEDS GIVEN FOR CHRONIC BACK PAIN, PT NOW RESTING QUIETLY IN BED, WILL CON'T TO MONITOR PER PPOC.
[2021-02-10 04:07] VITALS: BP 120/76
[2021-02-10 06:23] LABS: ALBUMIN 2.5 g/dL (3.4-5.0); CALCIUM 8.7 mg/dL (8.5-10.1); CREATININE 0.6 mg/dL (0.6-1.0); POTASSIUM 4.2 mmol/L (3.5-5.1); TOTAL BILIRUBIN 0.3 mg/dL (0.2-1.0); TOTAL PROTEIN 5.7 g/dL (6.4-8.2)
[2021-02-10 08:03] VITALS: BP 126/80
[2021-02-10 11:32] VITALS: BP 96/60
--- NOTE | 2021-02-10 13:30 | NUR ---
Case opened to follow for dc planning. Pt readmitted from SNF at [facility] due to pneumonia/resp failure. She is back down to 3liters per nc o2 today and being reevaluated by therapy. The [facility] liason was here to visit with the pt and she is agreeable to return to skilled rehab there;however they will need ins auth for readmission. Pt may be dc ready 1-2 days. Updated faxed but therapy evals are still pending. Will follow.
[2021-02-10 16:32] VITALS: BP 122/76
[2021-02-10 16:34] LABS: HEMATOCRIT 26.5 % (37.0-47.0); HEMOGLOBIN 8.3 gm/dL (12.0-15.0)
--- NOTE | 2021-02-10 17:26 | NUR ---
PT REMAINED ON 3L NC AND WORKED WITH PT/OT. PT TAKING IN GOOD PO. CONTINUE CURRENT PLAN OF CARE.
--- NOTE | 2021-02-10 18:57 | NUR ---
PT C/O OF SLIGHTLY MORE SOB AND BREATHING FASTER. OXYGEN SAT IS 94% ON 4LNC. CONTACT ALLISON IN RT AND SHE WILL PLACE ON BIPAP.
[2021-02-10 20:15] VITALS: BP 122/66
[2021-02-11 04:45] VITALS: BP 129/82
--- NOTE | 2021-02-11 05:18 | NUR ---
RECEIVED PATIENT AT 1900H.PATIENT IS ALERT AND ORIENTED.ON NON REBREATHING MASK AT 50%FIO2, SATURATING WELL ASKED RT IF WE NEED TO PLACE PATIENT ON BIPAP BUT PATIENT IS COMFORTABLE WITH THE OXYGEN MASK AND SATURATION HAS BEEN MORE THAN 95%.RT ON DUTY WEANED DOWN THE PATIENT TO NASAL CANNULA AT 5LPM,TOLERATING WELL.ALL NEEDS ATTENDED.WILL CONTINUE TO MONITOR.
[2021-02-11 07:00] VITALS: BP 179/106
[2021-02-11 11:00] VITALS: BP 177/92
--- NOTE | 2021-02-11 13:52 | NUR ---
Possible dc back to SNF at [facility] this weekend; however ins auth is pending. All parties updated. If auth rec'd by 5pm today then they can accept this weekend. Pt still on 2-3 liters of o2 and motivated to return to snf and continue with her therapies.
--- NOTE | 2021-02-11 14:44 | NUR ---
TOOK OVER CARE OF THIS PATIENT AT 0700. PATIENT RESTING DURING REPORT. PATIENT WEARING 3 L O2 VIA NASAL CANNULA; DENIES SOA BUT BECOMES SOA WITH EXERTION. PT COMPLAINT OF PAIN AT THIS TIME. ADMINISTERED PRN PAIN MEDICATION. PATIENT AMBULATED TO CHAIR THIS AFTERNOON. PATIENT DENIES ANY CONCERNS OR COMPLAINTS AT THIS TIME.
[2021-02-11 15:07] VITALS: BP 153/80
[2021-02-11 19:04] VITALS: BP 160/89
--- NOTE | 2021-02-12 01:50 | NUR ---
ASSUMED PT CARE AT 1900. PT IS AWAKE, ALERT AND ORIENTEDX4, SR/ST ON TELE, C/O CHRONIC BACK PAIN, MEDS GIVEN WITH MINIMAL RELIEF, MEDS GIVEN PER JUL, ASSESSMENTS CHARTED, NO NEEDS AT THIS TIME, POSSIBLE DC OVER THE WEEKEND
[2021-02-12 02:57] VITALS: BP 161/85
[2021-02-12 08:00] VITALS: BP 164/93
[2021-02-12 12:00] VITALS: BP 169/103
--- NOTE | 2021-02-12 14:59 | EKG ---
[address] [address] ELECTROCARDIOGRAM REPORT Name: MUNROEBRY D Room #: 200-I ADM IN ..#: [id number] Admission: 02/09/21 Attend Phys: Cheyenne Arias MD Discharge: Date of : 57 Report #: [id number] [facility] Test Date: 2021-02-11 Test Time: 14:54:29 Pat Name: BRY MUNROE Department: Room: 200 I Gender: F Polymerization Kettle Operator: LATOYA : 1955 Requested By: Cheyenne Arias Order Number: [id number] MD: Jv Fonseca Measurements Intervals [place] Rate: 89 P: 7 ND: 156 QRS: 13 QRSD: 92 T: 13 QT: 345 QTc: 420 Interpretive Statements Sinus rhythm No significant abnormality Compared to ECG 02/09/2021 11:59:44 Nonspecific T wave abnormality is no longer present Electronically Signed On 02-12-2021 14:59:40 CDT by vJ Fonseca [email or web address] <ELECTRONICALLY SIGNED> By: Jv Fonseca MD, [facility] 02/12/21 1459 1454 145 Jv Fonseca MD, [facility] /EPI
[2021-02-12 16:00] VITALS: BP 191/113
--- NOTE | 2021-02-12 17:10 | NUR ---
TOOK OVER CARE FOR THIS PATIENT AT 0700.
--- NOTE | 2021-02-12 17:11 | NUR ---
TOOK OVER CARE FOR PATIENT AT 0700. PATIENT RESTING IN BED WITH 5 L OXYGEN VIA NASAL CANNULA. PATIENT SOA WITH EXERTION. RESPIRATORY THERAPY AWARE OF WAXING AND WANING OF SPO2. PATIENT HX OF CHRONIC LOWER BACK PAIN; ADMINISTERED PAIN MEDICATION. PATIENT BLOOD PRESSURE BEEN TRENDING UP SINCE LAST EVENING; CALLED ILE[facility] SEVERAL TIMES BEFORE RESPONSE; DR. TEJEDA ADDED MEDICATION TO MANAGE BLOOD PRESSURE. PATIENT EATING WELL. PATIENT DENIES ANY NEEDS AT THIS TIME. FALL PRECAUTIONS IN PLACE. CALL LIGHT WITHIN REACH.
[2021-02-12 19:30] VITALS: BP 159/92
--- NOTE | 2021-02-12 21:25 | NUR ---
PT SLEEPING, AWAKENED FOR ASSESSMENT, PT IMMEDIATELY ASKED FOR PAIN MEDS. PT SHARP TONED WHEN MEDS BROUGHT IN STATING WELL I ASKED FOR ICE CREAM. PT COMPLIANT WITH MEDS. LUNGS COARSE. HIGH ROMINA CANNULA. PT CALLS FOR ASSISTANCE.
--- NOTE | 2021-02-13 03:31 | NUR ---
PTS SATURATION DROPPED TO 66% WHEN TURNING FOR BED TORRES. O2 NOW AT 10L NC. PT REQUESTED PRN FOR BREAK THROUGH PAIN AND PRN MORPHINE PROVIDED.
[2021-02-13 03:45] VITALS: BP 178/109
[2021-02-13 04:55] LABS: HEMATOCRIT 24.3 % (37.0-47.0); HEMOGLOBIN 7.8 gm/dL (12.0-15.0); MCH 31.4 pg (26.0-34.0); MCHC 32.2 g/dL (28.0-37.0); MCV 97.5 fL (80.0-100.0); RBC 2.49 mil/uL (4.20-5.00); RDW 19.1 % (10.5-14.5); WBC 10.5 thou/uL (4.0-11.0)
[2021-02-13 05:15] LABS: CALCIUM 8.9 mg/dL (8.5-10.1); CREATININE 0.8 mg/dL (0.6-1.0); POTASSIUM 4.1 mmol/L (3.5-5.1)
--- NOTE | 2021-02-13 05:37 | NUR ---
PT CONTINUES TO DESAT TO 66% WITH VERY SLOW RECOVERY, NRB MASK USED TO HELP INCREASE PTS O2 SAT. PT CONTINUES TO WIGGLE IN BED AND LAY ON R SIDE WHICH DECREASES HER O2 SAT TO 66%. RESPIRATORY CONTACTED AND PT PLACED ON NRB MASK.
--- NOTE | 2021-02-13 05:57 | NUR ---
HOIST WORKER AND PROVIDER UPDATED RE PT NEEDING NRB MASK TO MAINATAIN SATURATIONS, MOVING PT CLOSER TO NURSES STATION. NOT BEHIND DOUBLE DOORS.
--- NOTE | 2021-02-13 06:30 | NUR ---
PT MOVED TO 217. PT HAD ALL OF HER BELONGINGS MOVED WITH HER. PT REMAINS ON NON REBREATHER. BP REAMINS ELEVATED 178/109, 180/112. PROVIDER NOTIFIED, REVIEWED AM ORDERS FOR BP MEDS. AT THIS TIME NO NEW ORDERS AND NO ORDERS TO GIVE AM MEDS EARLY. TO CONTINUE TO MONITOR SINCE PT HAD SEVERAL EPISODES OF LOW SATURATION AND RECOVERY.
[2021-02-13 08:46] VITALS: BP 167/111
[2021-02-13 09:17] LABS: BE(vivo) -4.1 mmol/L (-2 to +3); PCO2 38.8 mmHg (35.0-45.0); PO2 60.5 mmHg (80.0-100.0); pH 7.352 (7.360-7.450); sO2 90.2 % (92.0-98.0)
[2021-02-13 12:56] VITALS: BP 127/74
--- NOTE | 2021-02-13 13:45 | EKG ---
[address] [address] ELECTROCARDIOGRAM REPORT Name: MUNROEBRY D Room #: 217-[facility] .R.#: [id number] Admission: 02/09/21 Attend Phys: Cheyenne Arias MD Discharge: Date of : 57 Report #: [id number] [facility] Test Date: 2021-02-13 Test Time: 09:29:13 Pat Name: BRY MUNROE Department: Room: [facility] Gender: F Dray Truck Driver: BERNADINE : 1955 Requested By: Louise Giang Order Number: [id number] MD: Jv Fonseca Measurements Intervals [place] Rate: 123 P: 30 KS: 151 QRS: 18 QRSD: 91 T: 30 QT: 307 QTc: 439 Interpretive Statements Sinus tachycardia Borderline repolarization abnormality Compared to ECG 02/11/2021 14:54:29 Heart rate has increased Electronically Signed On 02-13-2021 13:45:34 CDT by Jv Fonseca [email or web address] <ELECTRONICALLY SIGNED> By: Jv Fonseca MD, [facility] 02/13/21 1345 0929 8 Jv Fonseca MD, FACC /EPI
--- NOTE | 2021-02-13 15:20 | NUR ---
Assumed pt care at 7am. Pt in bed with high flow o2 at 15liter perNRB. C/o soa and chest pain. Dr Giang on the unit rounding on pt and was notified. Order noted and she talked to Dr Zhou about pt current status.Nitro sub lingual given with morphine ivp. Partial relief noted.Assessment completed.vss but elevated bp noted.Scheduled oral bp meds given with good result.Additional bp meds given at lunch.Dr Zhou later rounded on pt this afternoon.Pt alternated between nc and nrb. Pt spouse here to visit.No further c/o at present. Pt in bed sleeping. will continue to monitor.
[2021-02-13 16:35] VITALS: BP 181/113
[2021-02-13 19:41] LABS: BE(vivo) -2.8 mmol/L (-2 to +3); HCO3 22.3 mmol/L (22.0-26.0); PCO2 39.8 mmHg (35.0-45.0); PO2 71.3 mmHg (80.0-100.0); pH 7.366 (7.360-7.450); sO2 93.9 % (92.0-98.0)
[2021-02-13 19:55] VITALS: BP 173/110
[2021-02-14 00:15] VITALS: BP 126/91
[2021-02-14 04:45] VITALS: BP 150/63
--- NOTE | 2021-02-14 06:28 | NUR ---
PT ALERT AND ORIENTED, ASSESSMENTS CHARTED, PT STAYED ON BIPAP ALL NIGHT, TOLERATED WELL, O2 SATS STABLE, VSS, NO NEEDS AT THIS TIME, WILL PASS ON REORT
[2021-02-14 08:20] VITALS: BP 161/81
--- NOTE | 2021-02-14 11:41 | NUR ---
Assumed care of pt at 0700. Pt a&ox4. Denies pain at this moment. On a non-rebreather mask. Pt desats the moment she removed the face mask. Has to put mask back on in between bites at meal time. Provider aware. New orders noted. Call light within reach. Fall precautons in place. Will continue to monitor.
[2021-02-14 11:50] VITALS: BP 147/86
[2021-02-14 16:10] VITALS: BP 120/67
[2021-02-14 20:15] VITALS: BP 148/79
[2021-02-15 00:15] VITALS: BP 147/87
--- NOTE | 2021-02-15 04:04 | NUR ---
assumed pt care at 1900, awake, alert and orientedx4, given sheduled morphine for back pain, denies soa, bipap at hs, o2sats stable, sr/sb on tele, no needs at this time, progressing slowly towards poc, will continue to monitor per poc
[2021-02-15 04:23] LABS: CALCIUM 8.7 mg/dL (8.5-10.1); CREATININE 0.6 mg/dL (0.6-1.0); POTASSIUM 5.2 mmol/L (3.5-5.1)
[2021-02-15 04:45] VITALS: BP 150/96
[2021-02-15 05:21] LABS: HEMATOCRIT 28.4 % (37.0-47.0); HEMOGLOBIN 8.9 gm/dL (12.0-15.0); MCH 30.5 pg (26.0-34.0); MCHC 31.4 g/dL (28.0-37.0); MCV 97.3 fL (80.0-100.0); RBC 2.92 mil/uL (4.20-5.00); RDW 17.8 % (10.5-14.5); WBC 13.2 thou/uL (4.0-11.0)
[2021-02-15 08:00] VITALS: BP 170/95
--- NOTE | 2021-02-15 10:44 | NUR ---
Assumed care of pt this AM. Pt is A&O x4, received on Bipap 80% FIO2. Pt c/o back & rt shoulder pain. Given PRN pain medication. Pt transfered to RI @ 14L. Pt desat during breakfast, turned up to 15L. Called RT to get forehead monitor as this nurse believes its due to poor connection on finger sat monitor. PT to come back & work with pt this afternoon after forehead monitor applied. SA w/ PAC on the monitor. Pt resting comfortably in bed currently. Will continue to monitor.
[2021-02-15 11:58] VITALS: BP 117/62
[2021-02-15 15:50] VITALS: BP 136/82
[2021-02-15 20:04] VITALS: BP 115/68
[2021-02-16 05:00] LABS: HEMATOCRIT 27.5 % (37.0-47.0); MCH 31.4 pg (26.0-34.0); MCHC 32.8 g/dL (28.0-37.0); MCV 95.8 fL (80.0-100.0); RBC 2.87 mil/uL (4.20-5.00); RDW 17.4 % (10.5-14.5); WBC 10.9 thou/uL (4.0-11.0)
[2021-02-16 05:06] VITALS: BP 133/74
[2021-02-16 05:25] LABS: CALCIUM 8.9 mg/dL (8.5-10.1); CREATININE 0.7 mg/dL (0.6-1.0); MAGNESIUM 1.9 mg/dL (1.8-2.4); POTASSIUM 3.6 mmol/L (3.5-5.1)
[2021-02-16 07:30] VITALS: BP 126/69
--- NOTE | 2021-02-16 07:50 | NUR ---
alert and orientedx4, sr on tele, pain meds given with partial relief, pt desats with minimal activity, still requiring 10l of o2, assessments as charted, large bowel movement this morning, passed on report to day nurse
[2021-02-16 12:00] VITALS: BP 80/51
--- NOTE | 2021-02-16 12:09 | NUR ---
Nutrition: pt seen for LOS. Admitted with AMS, respiratory failure, HCAP, CKD. Requiring increased 02. Dysphagia, with prior pureed nectar thick diet order now upgraded post videoswallow to mechanically altered chopped. Pt is eating very well, 100% of meals. UBW 145#. Current 167#. gain likely attributed to need for steroids. Pt also on lasix. D/C to [facility] when stable. Low risk.
[2021-02-16 13:06] VITALS: BP 91/60
[2021-02-16 15:30] VITALS: BP 151/84
--- NOTE | 2021-02-16 16:38 | NUR ---
PT REMAINS ON HIGH FLOW NC AT 10 LPM, OCCASIONALLY NEEDING OXYGEN FACEMASK AT 6 LPM. PT PUTS ON THE FACEMASK WHEN SHE HEARS THE O2 ALARM GO OFF. PT WENT FOR A VIDEO SWALLOW TEST TODAY, DIET CHANGED TO THIN LIQUIDS. PT ALSO HAD A CHEST XRAY (SEE XRAY REPORT). PT DOES COMPLAIN OF SOME BACK PAIN THAT IS BEING TREATED WITH SCHEDULED MEDS.
[2021-02-16 20:15] VITALS: BP 151/85
--- NOTE | 2021-02-17 03:30 | NUR ---
PT IS ALERT AND ORIENTED X4. LUNGS ARE CLEAR TO DIMINISHED. ON BIPAP AT 70 PERCENT OXYGEN SATURATION IS 100 PERCENT. PT WATCHING TV AND SLEEPING DURING THE NIGHT TONIGHT. ABDOMEN IS ROUND AND SOFT BOWEL SOUNDS ACTIVE X4. REPORTING TO ME SHE LOST FAMILY TO COVID. SAYS SHE IS KIND OF DEPRESSED. UNDERSTANDABLE AND EMPATHY PROVIDED. COMPLAINS OF CHRONIC BACK PAIN. PAIN MEDS GIVEN FOR THAT ON JUL. CALL LIGHT WITHIN REACH IF NEEDS ASSISTANCE.
[2021-02-17 04:45] VITALS: BP 175/94
[2021-02-17 06:05] LABS: HEMATOCRIT 32.8 % (37.0-47.0); HEMOGLOBIN 10.5 gm/dL (12.0-15.0); MCH 30.9 pg (26.0-34.0); MCHC 32.1 g/dL (28.0-37.0); MCV 96.3 fL (80.0-100.0); RBC 3.41 mil/uL (4.20-5.00); RDW 16.9 % (10.5-14.5); WBC 12.8 thou/uL (4.0-11.0)
[2021-02-17 06:46] LABS: CREATININE 0.7 mg/dL (0.6-1.0); MAGNESIUM 2.2 mg/dL (1.8-2.4); POTASSIUM 3.6 mmol/L (3.5-5.1)
[2021-02-17 09:00] VITALS: BP 194/110
[2021-02-17 13:12] VITALS: BP 147/94
[2021-02-17 16:00] VITALS: BP 137/80
--- NOTE | 2021-02-17 17:49 | NUR ---
OVERALL PT HAD A GOOD SHIFT. PT REMAINED ON BiPAP THROUGHOUT O2 SAT REMAINED 95+ THROUGHOUT. PT HAS BEEN ABLE TO EAT BY TAKING TWO TO THREE SMALL BITES OF FOOD THEN PUTTING BIPAP BACK ON WITHOUT DIFFICULTY. PT HAD 1 SMALL BOWEL MOVEMENT ON THE BEDPAN.
[2021-02-17 19:26] VITALS: BP 150/93
--- NOTE | 2021-02-18 03:57 | NUR ---
PT IS SLEEPING DURING THE NIGHT ON BIPAP AT 60 PERCENT OXYGEN SATURATION IS 99-100 PERCENT. SCHEDULED MEDS FOR BACK PAIN AND TYLENOL GIVEN REQUESTED AND THEN PT SLEEPING. ABDOMEN IS ROUND BOWEL SOUNDS ACTIVE X4. NO EDEMA NOTED JUST OBESE. LUNGS ARE DIMINISHED. CALL LIGHT WITHIN REACH IF NEEDS ASSITANCE PER NURSING. ONGOING NURSING CARE ON THE UNIT
[2021-02-18 06:06] VITALS: BP 146/98
[2021-02-18 06:16] LABS: HEMATOCRIT 32.9 % (37.0-47.0); HEMOGLOBIN 10.6 gm/dL (12.0-15.0); MCH 31.3 pg (26.0-34.0); MCHC 32.1 g/dL (28.0-37.0); MCV 97.3 fL (80.0-100.0); RBC 3.39 mil/uL (4.20-5.00); RDW 17.5 % (10.5-14.5); WBC 14.3 thou/uL (4.0-11.0)
[2021-02-18 06:29] LABS: CALCIUM 9.1 mg/dL (8.5-10.1); CREATININE 0.8 mg/dL (0.6-1.0); MAGNESIUM 2.3 mg/dL (1.8-2.4)
[2021-02-18 08:58] VITALS: BP 174/102
--- NOTE | 2021-02-18 15:38 | NUR ---
PT IS ALERT AND ORIENTED X4. PT IS CURRENTLY ON 10L HIGH FLOW NC. PT WEARS BIPAP AT HS. SR ON THE MONITOR. PT WAS UP WITH PT X1 ASSIST WITH WALKER AND GAITBELT. PT TOLERATED WELL. PT HAS CHRONIC BACK PAIN AND HAS SCHEDULED PAIN MEDICATION. GAVE PRN TYLENOL PER PT REQUEST FOR PAIN. LIDOCAINE PATCH TO RIGHT SHOULDER. NO OTHER COMPLAINTS AT THIS TIME. WILL CONTINUE TO MONITOR.
--- NOTE | 2021-02-18 17:27 | NUR ---
Pt still requiring 10 liters of o2. [facility] updated. No weekend dc anticipated. They will need clinical updated next week and have to resubmit for ins auth once o2 decreased to 5-6 liters.
--- NOTE | 2021-02-18 18:18 | NUR ---
I have reviewed the documentation by SAMARA GONZALEZ from 02/18/21 to 02/18/21 and I concur with it. ENEDINA GONZALEZ
[2021-02-18 20:10] VITALS: BP 121/75
[2021-02-19 02:00] VITALS: BP 166/100
[2021-02-19 04:13] LABS: CALCIUM 9.1 mg/dL (8.5-10.1); CREATININE 0.8 mg/dL (0.6-1.0); MAGNESIUM 2.5 mg/dL (1.8-2.4)
[2021-02-19 04:15] LABS: HEMATOCRIT 34.3 % (37.0-47.0); HEMOGLOBIN 10.6 gm/dL (12.0-15.0); MCH 30.2 pg (26.0-34.0); MCHC 30.9 g/dL (28.0-37.0); MCV 97.6 fL (80.0-100.0); RBC 3.52 mil/uL (4.20-5.00); RDW 17.2 % (10.5-14.5); WBC 15.3 thou/uL (4.0-11.0)
--- NOTE | 2021-02-19 06:48 | NUR ---
ASSUMED PT CARE AT 1900.PT C/ PAIN TO HER BACK,MANAGED WITH MED.PT STILL NHIGH FLOW CANNULA AT 10L/SOB WITH EXERTION NOTED WITH ACTIVITY.SR ON THE MONITOR.PT ABLE TO MAKE HER NEEDS KNOAN.CALL LIGHT WITHIN REACH.
[2021-02-19 08:00] VITALS: BP 147/83
--- NOTE | 2021-02-19 11:18 | NUR ---
UPDATES FAXED TO [facility] ON PATIENT. 02 SATURATIONS, WITH ANY OR NO EXERCISE BLOOD GASES, OT/PT IF ANY. [facility]
[2021-02-19 12:00] VITALS: BP 104/61
[2021-02-19 16:30] VITALS: BP 150/82
--- NOTE | 2021-02-19 18:30 | NUR ---
ASSESSMENT CHARTED - MEDS PER MARYANN VILLANUEVA DIET AND FLUIDS. GIVEN MUSCLE RELAXER AND TYLENOL FOR BACK PAIN WITH MOF RELIEF. NO CO'S OF NAUSEA. UP TO THE BATHROOM WITH THE USE OF A WALKER. O2 ON 10 LITERS THIS AM - TITRATED DOWN TO 4 L NC SAT IN THE MIS 90'S . ACCUCHECKS CHARTED - NO COVERAGE REQUIRED. FAMILY INTO VISIT. NO CO'S AT THE PRESENT TIME.
[2021-02-19 19:27] VITALS: BP 135/70
[2021-02-20 04:09] VITALS: BP 156/80
[2021-02-20 08:40] VITALS: BP 150/85
[2021-02-20 11:50] VITALS: BP 125/70
[2021-02-20 16:20] VITALS: BP 148/87
--- NOTE | 2021-02-20 20:17 | NUR ---
ASSESSMENT CHARTED - MEDS PER JUL - GIVEN ZANAFLEX FOR CO'S OF BACK SPAMS WITH RELIEF. NO REQUESTS FOR BREAKTHROUGH PAIN MEDICATION THIS SHIFT - PT HAS REMAINED ON 4 L NC SAT IN THE MID 'S. UP TO THE BATHROOM WITH THE USE OF WALKER. NO CO'S OF PAIN OR NAUSEA. ACCUCHECKS CHARTED - FAMILY INTO VISIT TODAY. NO CO'S AT THE PRESENT TIME.
[2021-02-20 20:23] VITALS: BP 146/79
[2021-02-21 03:00] VITALS: BP 168/101
--- NOTE | 2021-02-21 05:15 | NUR ---
PT TRANSFERRING TO BEDSIDE COMMODE WITH ASSIST AND IS TOLERATING FAIR. MS CONTIN PROVIDING PAIN RELIEF. RESTING COMFORTABLY. NO NEEDS VOICED. CALL LIGHT WITHIN REACH. FREQUENT OBSERVATION.
[2021-02-21 08:00] VITALS: BP 165/104
[2021-02-21 12:20] VITALS: BP 130/83
--- NOTE | 2021-02-21 14:44 | NUR ---
I have reviewed the documentation by SAMARA GONZALEZ from 02/21/21 to 02/21/21 and I concur with it. ENEDINA GONZALEZ
[2021-02-21 16:00] VITALS: BP 142/86
--- NOTE | 2021-02-21 18:24 | NUR ---
Jim narayanan to work to obtain auth. Faxed updated clinical and therapy evals.
--- NOTE | 2021-02-21 19:04 | NUR ---
1905 PT IS DICHARGED HOME WITH SELF CARE. PTS PICC LINE IS REMOVED. PT IS GIVEN ALL DISCHARGE AND FOLLOW UP INSTRUCTIONS. REPORT CALLED TO RN AT [facility]AC[facility]. PTS WOUNDS PHOTOGRAPHED BEFORE DISCHRGE. PT IS ESCORTED OFF OF UNIT ACCOMPALINED BY [facility].
[2021-02-21 20:45] VITALS: BP 142/84
[2021-02-21 23:44] VITALS: BP 142/92
[2021-02-22 04:45] VITALS: BP 179/115
[2021-02-22 06:15] VITALS: BP 162/88
--- NOTE | 2021-02-22 06:46 | NUR ---
Patient progressing towardsoutcome goals. Rhythm stable. Fair pain control with current medications. Up to BSC with standby assist. Calls out appropriate for help with needs. Discharge plans for today pending insurance authorization. Oxygenation optimal with 3L/NC.
[2021-02-22 08:47] VITALS: BP 142/76
[2021-02-22 11:29] VITALS: BP 136/77
--- NOTE | 2021-02-22 11:56 | NUR ---
Assumed care of pt this AM. Pt is A&O x4, 3L NC. Denies any chest pain. SA on the monitor. Pt c/o back/ shoulder pain this AM. Scheduled pain medication given. Desat when working with OT to 70s on 3L, turned up to 5L w/ return to 96% within 1min. Pt up to chair today. Will continue to assess pt needs.
[2021-02-22] MEDS ORDERED: NORVASC5 MG PO (12:22)
[2021-02-22] MEDS ORDERED: PREDNISONE 10 M10 MG PO (12:23)
[2021-02-22 15:27] VITALS: BP 109/68
[2021-02-22 15:47] VITALS: BP 109/68
--- NOTE | 2021-02-22 15:57 | NUR ---
[facility] rec auth. Sp with patient/spouse. Plan dc to [facility]. wc van with oxygen provided by [facility] for 1629. Chart copied. Orders faxed. Patient, spouse in agreement with plan. no further needs
== END 2021-02-22 17:00 | DRG 193 ==
LOC: ER 11:49 → EROBS 17:05 → 2N 17:05
PROVIDERS: Internal Medicine; Internal Medicine Pulmonary Disease; Nurse Practitioner Family; Pediatrics; ADMIT Hospitalist; ATTEND Hospitalist
DX: J18.9 Pneumonia, unspecified organism (principal); R57.1 Hypovolemic shock; J96.21 Acute and chronic respiratory failure with hypoxia; E87.0 Hyperosmolality and hypernatremia; E87.2 Acidosis; I69.351 Hemiplegia and hemiparesis following cerebral infarction affecting right dominant side; Y95 Nosocomial condition; Z20.822 Contact with and (suspected) exposure to COVID-19; I10 Essential (primary) hypertension; G89.29 Other chronic pain; M54.9 Dorsalgia, unspecified; G62.9 Polyneuropathy, unspecified; N18.9 Chronic kidney disease, unspecified; E87.6 Hypokalemia; D64.9 Anemia, unspecified; J84.10 Pulmonary fibrosis, unspecified; F41.1 Generalized anxiety disorder; Z79.899 Other long term (current) drug therapy; I25.2 Old myocardial infarction; Z82.49 Family history of ischemic heart disease and other diseases of the circulatory system
CPT/HCPCS: 10081; 10194

== ENCOUNTER 2021-05-03 11:48 | Emergency (ER) | payer OTHER ==
[~2021-05-03] VITALS: Ht 154.9 cm; Wt 70.3 kg
[~2021-05-03 11:48] MED LIST changes: +AQUAPHOR HEALIN50 GM TOP; +ASPERCREME1 EACH TOP; +ENOXAPARIN40 MG/0.4 SUBQ; +MIRALAX17 G1 PO; +NORVASC5 MG PO; +PREDNISONE5 GM PO; +PROAIR HFA8.5 GM INH; +TIZANIDINE HCL2 M1 PO; +TOPROL XL100 MG PO; +XANAX 0.25 MG0.25 MG PO
[2021-05-03 12:31] LABS: ABSOLUTE NEUTROPHILS 3.9 thou/uL (1.4-8.2); BASOPHILS 1.3 % (0.0-2.0); EOSINOPHILS 1.2 % (0.0-3.0); HEMATOCRIT 40.3 % (37.0-47.0); LYMPHOCYTES 34.6 % (24.0-44.0); MCH 29.8 pg (26.0-34.0); MCHC 32.4 g/dL (28.0-37.0); MCV 92.2 fL (80.0-100.0); MONOCYTES 6.1 % (1.0-8.0); PLATELET COUNT 326 thou/uL (150-400); POLYS 56.8 % (36.0-66.0); RBC 4.37 mil/uL (4.20-5.00); RDW 14.8 % (10.5-14.5); WBC 6.9 thou/uL (4.0-11.0)
[2021-05-03 12:56] LABS: CALCIUM 9.9 mg/dL (8.5-10.1); CREATININE 0.8 mg/dL (0.6-1.0); POTASSIUM 3.7 mmol/L (3.5-5.1)
[2021-05-03 13:06] LABS: ALBUMIN 4.1 g/dL (3.4-5.0); MAGNESIUM 1.7 mg/dL (1.8-2.4); TOTAL BILIRUBIN 0.3 mg/dL (0.2-1.0); TOTAL PROTEIN 8.1 g/dL (6.4-8.2)
--- NOTE | 2021-05-03 14:02 | EKG ---
[place] [address] 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 : 1955 Requested By: Evelyn Chin Order Number: [id number] MD: Malachi Bingham Measurements Intervals [place] Rate: 111 P: 8 SD: 139 QRS: 13 QRSD: 210 T: 217 QT: 407 QTc: 553 Interpretive Statements Sinus tachycardia Biatrial enlargement Left ventricular hypertrophy Artifact in lead(s) I,II,III,aVR,aVL,aVF,V4,V5,V6 and baseline wander in lead(s) II,III,aVL,aVF,V1,V2,V3,V6 Compared to ECG 02/13/2021 09:29:13 Atrial abnormality now present Left ventricular hypertrophy now present T-wave abnormality now present Possible ischemia now present Electronically Signed On 05-03-2021 14:02:13 BEHAVIORAL THERAPY COORDINATOR by Malachi Bingham [email or web address] <ELECTRONICALLY SIGNED> By: Malachi Bingham MD, [facility] 05/03/21 1402 1158 1158 Malachi Bingham MD, [facility] /EPI
[2021-05-03 14:10] LABS: URINE BILIRUBIN NEGATIVE (Negative); URINE BLOOD NEGATIVE (Negative); URINE CLARITY CLEAR; URINE COLOR YELLOW; URINE GLUCOSE-RANDOM* NEGATIVE (Negative); URINE KETONES NEGATIVE (Negative); URINE LEUKOCYTES-REFLEX NEGATIVE (Negative); URINE NITRITE-REFLEX NEGATIVE (Negative); URINE PROTEIN (DIPSTICK) NEGATIVE (Negative); URINE UROBILINOGEN 0.2 E.U./dl (0.2-1.0)
[2021-05-03] MEDS ORDERED: DOXYCYCLINE 10100 M2 PO (15:10)
[2021-05-03] MEDS ORDERED: PROAIR HFA8.5 GM INH (15:10)
[2021-05-03] MEDS ORDERED: PREDNISONE 20 M20 MG PO (15:10)
[2021-05-03 15:44] VITALS: BP 205/120
== END 2021-05-03 16:13 | disposition home or self-care (01) ==
LOC: ER 11:48
PROVIDERS: Nurse Practitioner Family
DX: J18.9 Pneumonia, unspecified organism (principal); Z20.822 Contact with and (suspected) exposure to COVID-19; R53.1 Weakness; I10 Essential (primary) hypertension; Z79.899 Other long term (current) drug therapy

== ENCOUNTER 2021-06-01 14:20 | Inpatient (IN) | payer MEDICARE, OTHER ==
[~2021-06-01] VITALS: Ht 154.9 cm; Wt 70.3 kg
--- NOTE | ~2021-06-01 | EMS ---
[address] [address] EMS Patient Care Report Name: BRY LAFLEUR Room #: 170-10 ADM IN M.R.#: [id number] Admission: 06/01/21 Attend Phys: Elias Gay MD Discharge: Date of : 57 Report #: [id number] THIS REPORT FOR: //name// Report Transmitted: 06/01/2021 17:58 EMS Care Summary [place], [place]/[facility] Incident [phone] @ 06/01/2021 13:49 Incident Location [address] [place], [place] [id number] Patient BRY LAFLEUR Female, 66 Years 1955 Patient Address [address] [place] [address] Patient History Hypertension (HTN), Patient Allergies No known allergies, Patient Medications Gabapentin, Morphine, Lisinopril, Chief Complaint HYPERTENSION Disposition Transported No Lights/[place] Dispatch Reason Sick Person Transported To [facility] Narrative M42 WAS DISPATCHED FOR A SICK PERSON. UPON ARRIVAL THE PT WAS SITTING IN [facility] WITH THE HOME HEALTH NURSE. HOME HEALTH NURSE REPORTED THE PT BLOOD PRESSURE WAS 170/120. THE PT WAS COMPLIANT WITH HER BLOOD PRESSURE MEDICATIONS. THE PT ALSO COMPLAINED OF A SEVERE HEADACHE AND SWELLING TO HER ANKLES, [place] [address] EMS Patient Care Report Name: BRY LAFLEUR Room #: 170-10 ADM IN [facility]#: [id number] Admission: 06/01/21 Attend Phys: Elias Gay MD Discharge: Date of : 57 Report #: [id number] WHICH HAD BEEN GOING ON FOR "A FEW DAYS". THE PT DENIED ANY PAIN EXCEPT FOR BACK PAIN, WHICH SHE DESCRIBED CHRONIC, DUE TO CHEERLEADING WHN SHE WAS YOUNGER. THE PT WAS MOVED TO THE AMBULANCE AND TRANSPORTED TO THE HOSPITAL WHILE BEING MONITORED ENROUTE. THE PT WAS TRANSFERRED TO HOSPITAL STAFF WITH A REPORT. EMS RETURNED TO SERVICE. Initial Vitals @14:00P: 104,R: 18,BP: 170/120,Pain: 0/10,GCS: 15,SpO2: 100,Revised Trauma: 12,IN Suspected: false @14:10P: 102,R: 18,BP: 180/120,Pain: 0/10,GCS: 15,SpO2: 100,Revised Trauma: 12,IN Suspected: false Assessments @13:55MENTAL:Person Oriented,Time Oriented,Place Oriented,Event Oriented,SKIN:HEENT:Head/Face: No Abnormalities,Neck/Airway: No Abnormalities,LUNG SOUNDS:General: No Abnormalities,ABDOMEN:General: No Abnormalities,PELVIS//GI:No Abnormalities,EXTREMITIES:Left Leg: Edema,Right Leg: Edema,Left Arm: No Abnormalities,Right Arm: No Abnormalities,PULSE:Radial: 2+ Normal,NEURO:No Abnormalities, Impression Headache Procedures @14:00 3-Lead ECG Response: UnchangedSucceeded @13:55 ALS Assessment Response: UnchangedSucceeded Timeline 13:47,Call Received 13:47,Dispatch Notified 13:49,Dispatched 13:50,En Route 13:54,On Scene 13:55,At Patient 13:55,ALS Assessment,Response: UnchangedSucceeded, 14:00,3-Lead ECG,Response: UnchangedSucceeded, 14:00,BP: 170/120 M,PULSE: 104,RR: 18 R,SPO2: 100 Ox,ETCO2: ,BG: ,PAIN: 0,GCS: 15, 14:05,Depart Scene 14:10,BP: 180/120 M,PULSE: 102,RR: 18 R,SPO2: 100 Ox,ETCO2: ,BG: ,PAIN: 0,GCS: 15, 14:20,At Destination 14:36,Call Closed Disclaimer [address] [place] [address] EMS Patient Care Report Name: BRY LAFLEUR Room #: 170-10 ADM IN M.R.#: [id number] Admission: 06/01/21 Attend Phys: Elias Gay MD Discharge: Date of : 57 Report #: [id number] v1.1 Copyright 2021 [employer] This EMS Care Summary contains data elements from the applicable legal record (which may be displayed differently). It is designed to provide pertinent information for the following purposes: continuity of care, clinical quality, and state data reporting. The complete legal record is available to ED staff and administrators of the receiving hospital in [facility]'s Patient Tracker. All data is provided "as is."
[~2021-06-01 14:20] MED LIST changes: +DOXYCYCLINE 10100 M2 PO; +PREDNISONE 20 M20 MG PO
[2021-06-01 14:34] VITALS: BP 230/133
[2021-06-01 15:22] LABS: ABSOLUTE NEUTROPHILS 3.9 thou/uL (1.4-8.2); BASOPHILS 1.9 % (0.0-2.0); EOSINOPHILS 1.9 % (0.0-3.0); HEMOGLOBIN 13.4 gm/dL (12.0-15.0); LYMPHOCYTES 38.9 % (24.0-44.0); MCH 28.3 pg (26.0-34.0); MCHC 31.8 g/dL (28.0-37.0); MCV 88.9 fL (80.0-100.0); MONOCYTES 7.8 % (1.0-8.0); PLATELET COUNT 336 thou/uL (150-400); POLYS 49.5 % (36.0-66.0); RBC 4.73 mil/uL (4.20-5.00); RDW 14.9 % (10.5-14.5); WBC 7.8 thou/uL (4.0-11.0)
[2021-06-01 15:39] LABS: CALCIUM 10.4 mg/dL (8.5-10.1); CREATININE 0.8 mg/dL (0.6-1.0); POTASSIUM 3.9 mmol/L (3.5-5.1)
[2021-06-01 15:50] LABS: ALBUMIN 4.3 g/dL (3.4-5.0); TOTAL BILIRUBIN 0.3 mg/dL (0.2-1.0); TOTAL PROTEIN 8.7 g/dL (6.4-8.2)
[2021-06-01 16:50] LABS: URINE BILIRUBIN NEGATIVE (Negative); URINE BLOOD NEGATIVE (Negative); URINE CLARITY CLEAR; URINE COLOR YELLOW; URINE GLUCOSE-RANDOM* NEGATIVE (Negative); URINE KETONES NEGATIVE (Negative); URINE LEUKOCYTES-REFLEX NEGATIVE (Negative); URINE NITRITE-REFLEX NEGATIVE (Negative); URINE PROTEIN (DIPSTICK) NEGATIVE (Negative); URINE SPECIFIC GRAVITY 1.015 (1.005-1.035); URINE UROBILINOGEN 0.2 E.U./dl (0.2-1.0)
[2021-06-01 17:15] LABS: AMP/METHAMP Negative (Negative); BARBITURATES Negative (Negative); BENZODIAZEPINES Negative (Negative); COCAINE Negative (Negative); METHADONE Negative (Negative); OPIATES POSITIVE (Negative); PCP Negative (Negative)
[2021-06-01] MEDS ORDERED: TOPIRAMATE50 MG PO (17:28)
[2021-06-01] MEDS ORDERED: MORPHINE SULFAT15 M3 PO (18:06)
[2021-06-02 06:13] LABS: BASOPHILS 1.4 % (0.0-2.0); HEMATOCRIT 39.1 % (37.0-47.0); HEMOGLOBIN 12.5 gm/dL (12.0-15.0); MCH 28.4 pg (26.0-34.0); MCHC 31.9 g/dL (28.0-37.0); MCV 89.1 fL (80.0-100.0); MONOCYTES 11.6 % (1.0-8.0); PLATELET COUNT 287 thou/uL (150-400); RBC 4.39 mil/uL (4.20-5.00); RDW 14.9 % (10.5-14.5); WBC 6.4 thou/uL (4.0-11.0)
[2021-06-02 06:32] LABS: CALCIUM 9.5 mg/dL (8.5-10.1); CREATININE 1.1 mg/dL (0.6-1.0); MAGNESIUM 2.1 mg/dL (1.8-2.4); POTASSIUM 4.4 mmol/L (3.5-5.1)
[2021-06-02 07:59] VITALS: BP 108/62
--- NOTE | 2021-06-02 08:06 | EKG ---
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 : 1955 Requested By: Kei Gamble Order Number: [id number] MD: Jv Fonseca Measurements Intervals [place]ter Rate: 107 P: 10 OK: 166 QRS: 13 QRSD: 87 T: 34 QT: 360 QTc: 481 Interpretive Statements Sinus tachycardia Left ventricular hypertrophy Baseline wander in lead(s) V1 Compared to ECG 05/03/2021 11:58:18 No significant change was found Electronically Signed On 06-02-2021 8:06:26 FRUIT FARMWORKER by Jv Fonseca [email or web address] <ELECTRONICALLY SIGNED> By: Jv Fonseca MD, [facility] 06/02/21 0806 1441 1441 Jv Fonseca MD, [facility] /EPI
[2021-06-02] MEDS ORDERED: NORVASC10 MG PO (08:38)
[2021-06-02] MEDS ORDERED: LISINOPRIL-HCT1 EAC1 PO (08:38)
[2021-06-02] MEDS ORDERED: TOPROL XL100 MG PO (08:39)
[2021-06-02 12:10] VITALS: BP 163/98
[2021-06-02 12:32] VITALS: BP 163/98
== END 2021-06-02 12:30 | disposition home or self-care (01) | DRG 304 ==
LOC: ER 14:20 → EROBS 18:49
PROVIDERS: Emergency Medicine; Nurse Practitioner; ADMIT Hospitalist; ATTEND Hospitalist
DX: I16.1 Hypertensive emergency (principal); G93.41 Metabolic encephalopathy; I69.351 Hemiplegia and hemiparesis following cerebral infarction affecting right dominant side; I16.0 Hypertensive urgency; Z20.822 Contact with and (suspected) exposure to COVID-19; G43.909 Migraine, unspecified, not intractable, without status migrainosus; G89.4 Chronic pain syndrome; I25.2 Old myocardial infarction; G62.9 Polyneuropathy, unspecified; Z86.16 Personal history of COVID-19; I12.9 Hypertensive chronic kidney disease with stage 1 through stage 4 chronic kidney disease, or unspecified chronic kidney disease; N18.9 Chronic kidney disease, unspecified; F11.90 Opioid use, unspecified, uncomplicated